=== PATIENT | male | born 1970 | race Two or more races ===

== ENCOUNTER 2024-12-21 00:13 | Inpatient (IN) | payer MEDICAID, SELFPAY ==
[2024-12-21] VITALS (8 sets, daily range): BP systolic 134–175; BP diastolic 57–86; PULSE 75–108; RESP 16–22; TEMP 36.6–37.3; O2SAT 91–100; BMI 41.6
--- NOTE | 2024-12-21 | ECG_ITS ---
Test Reason : CP Blood Pressure : */* mmHG Vent. Rate : 110 BPM Atrial Rate : 110 BPM P-R Int : 134 ms QRS Dur : 88 ms QT Int : 330 ms P-R-T Axes : 36 31 20 degrees QTcB Int : 446 ms Sinus tachycardia with Premature atrial complexes Nonspecific T wave abnormality Abnormal ECG No previous ECGs available Referred By: Generic ED Physician Electronically Signed By: SHEELA COONEY
--- NOTE | ~2024-12-21 | XR_ITS ---
CLINICAL HISTORY: chest pain 2 view chest x-ray Comparison: None Findings: Patchy bilateral pulmonary infiltrates. Heart size is normal. No acute fracture. IMPRESSION: Patchy bilateral pulmonary infiltrates. This document has been electronically signed by: Ilan Hillman MD, PHD on 12/21/2024 01:34:56
--- NOTE | 2024-12-21 00:27 | MHC.EDTECH ---
Patient brought into triage area,EKG taken per order and signed by provider.
--- NOTE | 2024-12-21 01:32 | ED.ASTHMA ---
HPI - Asthma General Chief Complaint: Upper Respiratory Symptoms Stated Complaint: sob? 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 Antonia Strauss HPI Narrative: patient comes to the emergency room complaining of 1 week of cough and shortness of breath and wheezing. Patient states that to his knowledge he has never been diagnosed with asthma or COPD. However, couple of days ago patient went to see his primary care physician, and he was prescribed an inhaler. Patient states that he has not had any improvements. Patient states that now he is having fever, chills shortness of breath keeps worsening Related Data Allergies Allergy/AdvReac Type Severity Reaction Status Date / Time No Known Allergies Allergy Verified 12/21/24 01:35 Review of Systems Review of Systems: Constitutional : No Fever, pos Chills ENT/Mouth : No Hoarseness, No sore throat, No Rhinorrhea Eyes: No Redness, No Discharge, No Vision Changes Cardiovascular : pos Chest Pain, positive SOB, positive Dyspnea on Exertion, No Edema Respiratory : positive Cough, pos Sputum, positive Wheezing, Gastrointestinal : No Nausea, No Vomiting, No Diarrhea, No abdominal Pain Genitourinary : No Dysuria, No Hematuria Musculoskeletal : No joint pain, No Myalgias Skin : No rash Neuro : No Weakness, No Numbness, No Headache Psych : No anxiety, depression All other systems reviewed and are negative PMF Past Medical History Attestation statement: The following information was validated with the patient. Source: old records reviewed Medical History Tobacco abuse Opiate abuse, continuous Obesity HTN (hypertension) Social History Social History (Updated 12/21/24 @ 01:39 by Amarilis Solorzano DO) Patient Tobacco Use Status: Current everyday Tobacco user Advance Directives: No Advance Directives Information Provided: Yes Physical Exam Vital Signs: Vital Signs: Last Vital Signs Temp 99.1 F 12/21/24 01:26 Pulse 108 H 12/21/24 02:33 Resp 20 12/21/24 02:33 BP 154/72 H 12/21/24 01:26 Pulse Ox 94 12/21/24 01:26 O2 Del Method Room Air 12/21/24 01:26 BMI result Body Mass Index 41.6 Appearance: Alert. Oriented X3. No acute distress. Eyes: Pupils equal, round and reactive to light. ENT: Pharynx normal. Neck: Normal inspection. Neck supple. CVS: Normal heart rate and rhythm. Pulses normal. Respiratory: No respiratory distress. Breath sounds diminished throughout and very coarse Abdomen: Soft and non-tender. Skin: Skin warm and dry. Normal skin color. Normal skin turgor. Extremities: No lower extremity edema. Neuro: Oriented X 3. No motor deficit. No sensory deficit. CN2-12 intact Const: Other: Appearance: Alert. Oriented X3. No acute distress. Eyes: Pupils equal, round and reactive to light. ENT: Pharynx normal. Neck: Normal inspection. Neck supple. No lymph nodes noted. No crepitus CVS: Normal heart rate and rhythm. Pulses normal. Normal S1 and S2 Respiratory: No respiratory distress. occasional dry cough, mild rales, no crackles, no wheezing Abdomen: Soft and nontender. No rigidity. No distention. Skin: Skin warm and dry. Normal skin color. Normal skin turgor. Extremities: No lower extremity edema. No Lacerations. No Rash Neuro: Oriented X 3. No motor deficit. No sensory deficit. Moving all extremities. No slurred speech. CN 2 through 12 grossly intact Psych: calm, cooperative, normal affect Course Course Course Narrative: 54 yo male with PMH of obesity, HTN, HLD, anemia, suboxone for opiate use disorder he was recently started on an asthma inhaler for wheezing/cough. Has a cough and feels his chest his tight. No recent travel or procedures. No known fevers/chills. No n/v/d. He is a lifelong smoker. This has been happening for 10 days. At this time basic, labs, CXR, viral panel this is a RAPID medical screening exam the rest of the history and physical exam is to be done by the main provider. Medications Administered Discontinued Medications Generic Name Dose Route Start Last Admin Trade Name Freq PRN Reason Stop Dose Admin Albuterol Sulfate 2.5 mg/ 0 mg 12/21/24 02:26 12/21/24 02:30 Albuterol/Ipratropium 3 ml INHALE 12/21/24 02:27 1 dose ONCE ONE Administration Medical Decision Making Medical Decision Making [facility] Narrative: my interpretation of labs: Patient's white blood cell count 9.4. Patient has a slightly decreased hemoglobin at 8.8, hematocrit 28.3. Patient denies any rectal bleeding, dark stool. Serology report negative for influenza RSV and COVID chest x-ray: Patchy bilateral pulmonary infiltrates patient has not had any episodes of hypotension in the emergency room, normal lactic, no fever. Sepsis is not suspected. Patient empirically being treated with IV fluids based on ideal weight of 55 kg, patient is obese. Patient covered with ceftriaxone and azithromycin IV. Ambulation trial : Patient's oxygen saturation dropped to 84% with minimal exertion. Patient has an oxygen saturation of 89% sitting in the stretcher without any exertion. No wheezing. However, patient became very short of breath after the small walk. Patient is now on 2 L oxygen. I discussed the patient with Dr. Faye, patient being admitted Differential Diagnosis Differential Diagnoses: The differential diagnosis associated with the presentation includes atypical chest pain, viral syndrome, reactive airway disease Admission/Observation Consideration of admission/observation: Escalation of care including admission/observation considered Lab Data MDM Lab Attestation statement: I reviewed the patient's lab results. 12/21/24 02:10 12/21/24 02:10 Labs: Lab Results 12/21/24 12/21/24 Range/Units 02:10 02:15 WBC 9.4 (4.8-10.8) X10*3/uL RBC 3.92 L (4.60-5.80) X10*6/uL Hgb 8.8 L (14.0-18.0) g/dl Hct 28.3 L (42.0-52.0) % MCV 72.2 L (80.0-98.0) fL MCH 22.4 L (27.0-33.0) pg MCHC 31.1 (31.0-36.0) g/dl RDW 17.4 H (11.0-16.0) % Plt Count 288 (160-400) X10*3/uL MPV 10.2 (9.4-12.4) fL Immature Gran % (Auto) 0.2 (0.0-0.4) % Neut % (Auto) 88.7 H (45-73) % Lymph % (Auto) 6.6 L (20-40) % Divide % (Auto) 4.4 (2-11) % Eos % (Auto) 0.0 (0-4) % Baso % (Auto) 0.1 (0-2) % Lymph # (Auto) 0.6 L (1.2-4.9) X10*3/uL Divide # (Auto) 0.4 (0.1-1.2) X10*3/uL Eos # (Auto) 0.0 (0.0-0.4) X10*3/uL Baso # (Auto) 0.0 (0.0-0.2) X10*3/uL Abs Immat Gran (auto) 0.02 (0.00-0.03) X10*3/uL Absolute Neuts (auto) 8.4 H (2.0-8.3) x10*3/uL Absolute Nucleated RBC 0.000 (0.0-0.012) X10*3/uL Nucleated RBC % (auto) 0.0 (0.0-0.2) /100WBC Sodium 138 (135-145) mmol/L Potassium 4.0 (3.3-5.1) mmol/L Chloride 106 (96-108) mmol/L Carbon Dioxide 22 (22-29) mmol/L Anion Gap 14 (12-20) BUN 9 (9-16) mg/dL Creatinine 0.87 (0.5-1.4) mg/dL Estim Creat Clear Calc 112.9 Estimated GFR > 60 Random Glucose 133 H (60-115) mg/dL Lactic Acid 0.9 (0.5-2.0) mmol/L Calcium 9.1 (8.4-10.2) mg/dL Magnesium 2.0 (1.6-2.6) mg/dL Total Bilirubin 0.6 (0.0-1.0) mg/dL Direct Bilirubin 0.3 (0.0-0.5) mg/dL AST 49 H (5-37) U/L ALT 10 (0-40) U/L Alkaline Phosphatase 94 (39-117) U/L Troponin I High Sens 16.5 (<3.5-35.0) ng/L C-Reactive Protein 29.09 H (< or = 0.50) mg/dL B-Natriuretic Peptide 82 (<100) pg/mL Total Protein 8.9 H (6.5-8.0) g/dL Albumin 4.0 (3.5-5.0) g/dL Lipase 13 (8-78) U/L Procalcitonin 0.56 ng/mL Influenza Type A (PCR) NEGATIVE (Negative) Influenza Type B (PCR) NEGATIVE (Negative) RSV RNA Qual (PCR) NEGATIVE (Negative) SARS-CoV-2 RNA (RT-PCR) NEGATIVE (Negative) Independent Interpretation I performed an independent interpretation of an: EKG and Plain X-Ray (bilateral pulm infiltrates) Interpretation: Rate: 110 Rhythm: sinus tachycardia Cameron: normal Normal P waves. Normal NICANOR. Normal QRS complex. ST T wave : no NATALIE, flat t waves inf leads, nonspecific ST T wave changes V6 qTC: 446 prior studies: no prior The study has been interpreted contemporaneously by me. . Independent Historian Clinical information obtained from an independent historian. History obtained from or confirmed by: Spouse External Record Review External record reviewed: Outpatient record Critical Care Time Critical Care Time Critical Care Time: Yes Total Critical Care Time: 60 Attestation: I have personally provided critical care time. Time includes review of lab data, radiology results, discussion with consultants, and monitoring for potential decompensation. Intervention performed as documented. Discharge Plan Discharge Clinical Impression: Pneumonia Patient Disposition: Admitted As Inpatient Print Language: Sinhala
[2024-12-21 02:22] LABS: Basophils Percent Auto 0.1 % (0-2); Hematocrit 28.3 % (42.0-52.0); Hemoglobin 8.8 g/dl (14.0-18.0); Imm Gran Abs Auto 0.02 X10*3/uL (0.00-0.03); Imm Gran Pct Auto 0.2 % (0.0-0.4); Lymphocytes Absolute Auto 0.6 X10*3/uL (1.2-4.9); Lymphocytes Percent Auto 6.6 % (20-40); MANUAL DIFF FLAG NO; Mean Corpuscular HGB Conc 31.1 g/dl (31.0-36.0); Mean Corpuscular Hemoglobin 22.4 pg (27.0-33.0); Mean Corpuscular Volume 72.2 fL (80.0-98.0); Mean Platelet Volume 10.2 fL (9.4-12.4); Monocytes Absolute Auto 0.4 X10*3/uL (0.1-1.2); Monocytes Percent Auto 4.4 % (2-11); Neutrophils Absolute Auto 8.4 x10*3/uL (2.0-8.3); Neutrophils Percent Auto 88.7 % (45-73); Platelet Count 288 X10*3/uL (160-400); Red Blood Count 3.92 X10*6/uL (4.60-5.80); Red Cell Distribution Width 17.4 % (11.0-16.0); White Blood Count 9.4 X10*3/uL (4.8-10.8)
[2024-12-21] MEDS: Albuterol Sulfate 2.5 MG, Albuterol/Iprat 2.5/0.5MG 3 ML 3 ML INHALE (02:30)
[2024-12-21 02:42] LABS: Lactic Acid 0.9 mmol/L (0.5-2.0)
[2024-12-21 02:45] LABS: Alanine Aminotransferase 10 U/L (0-40); Anion Gap 14 (12-20); Aspartate Amino Transferase 49 U/L (5-37); Bilirubin Direct 0.3 mg/dL (0.0-0.5); Bilirubin Total 0.6 mg/dL (0.0-1.0); Blood Urea Nitrogen 9 mg/dL (9-16); C Reactive Protein 29.09 mg/dL (< or = 0.50); Calcium 9.1 mg/dL (8.4-10.2); Carbon Dioxide 22 mmol/L (22-29); Chloride 106 mmol/L (96-108); Creatinine Clr Calc Pharmacy 112.9; Estimated Glomerular Filt Rate > 60; Glucose Random 133 mg/dL (60-115); Lipase 13 U/L (8-78); Sodium 138 mmol/L (135-145); Total Protein 8.9 g/dL (6.5-8.0)
[2024-12-21 02:46] LABS: Troponin-I High Sensitivity 16.5 ng/L (<3.5-35.0)
[2024-12-21 02:59] LABS: Influenza A PCR NEGATIVE (Negative); Influenza B PCR NEGATIVE (Negative); Resp Syncy Virus RNA Qual PCR NEGATIVE (Negative); SARS COV2 PCR INHOUSE NEGATIVE (Negative)
[2024-12-21 03:07] LABS: B Type Natriuretic Peptide 82 pg/mL (<100)
[2024-12-21 04:03] LABS: Alkaline Phosphatase 94 U/L (39-117)
--- NOTE | 2024-12-21 04:15 | MHC.EDTECH ---
pt refused blood work
[2024-12-21 04:57] LABS: Procalcitonin 0.56 ng/mL
--- OUTSIDE RECORDS SUMMARY | 2024-12-21 05:46 | XMS_ITS | Encounter Summary ---
Author Organization [facility] Address [address] [place] [address] Care Team Providers Care Associate Program Manager Name Role Phone Jesi Carmichael TITO Primary Care Provider [phone] Encounter Details Date Type Department Care Team (Late st Contact Info) Description 12/11/2024 Interim Notes [facility] [address] [place] [id number] Chad Sanchez PA [address] [place] [address] Opioid use disorder, mild, in sustained remission, on maintenance therapy, abuse ([facility]) Social History Tobacco Use Types Packs/Day Years Used Date Smoking Tobacco: Every Day Cigarettes Smokeless Tobacco: Never Comments:about 7 a day Alcohol Use Standard Drinks/Week Comments Not Currently 0 (1 standard drink = 0.6 oz pur e alcohol) Social Connections Answer Date Recorded Connectedness 1 10/21/2024 Financial Resource Strain Answer Date R ecorded Financial Resource Strain 2 2023 Stress Answer Date Recorded Stress 1 10/21/2024 Physical Activity Answer Date Recorded Physical Activity 0 10/13/2020 Food Insecurity Answer Date Recorded Food 1 10/21/2024 Transportation Needs Answer Date Record ed Transportation 1 10/21/2024 Housing Stability Answer Date Recorded Housing 1 10/21/2024 Safety and Environment Answer Date Brandon rded Safety 0 10/13/2020 Utilities Answer Date Recorded Utilities 1 10/21/2024 Employment Answer Date Recorded Stress 0 03/20/2023 Sex and Gender Information Value Date Recorded Sex Assigned at Male 05/30/2019 7:47 AM PDT Legal Sex Male 7:05 AM PDT Gender Identity Male 05/30/2019 7:47 AM PDT Sexual Orientation Straight 05/30/2019 7: 47 AM PDT documented as of this encounter Plan of Treatment Upcoming Encounters Date Type Department Care Team (Late st Contact Info) Description 01/14/2025 1:00 PM EDT / Visits [facility] [address] [place] [phone] Karina Rogers [place] [address] [place] [address] documented as of this encounter Visit Diagnoses Diagnosis Opioid use disorder, mild, in sustained remission, on maintenance therapy, abuse ([facility]) documented in this encounter Additional Health Concerns Assessment Noted Time PHQ-9 Depression Total Score: 8 12/07/19 24 4:36 PM PST documented as of this encounter Care Teams Associate Program Manager Relationship Specialty Start Date End Date Jesi Carmichael FNP [address] [place] [address] PCP - General Internal Medicine 09/29/22 documented as of this encounter
--- OUTSIDE RECORDS SUMMARY | 2024-12-21 05:46 | XMS_ITS | Encounter Summary ---
Author Organization [facility] Address [address] [place] [address] Care Team Providers Care Automatic Lump Making Machine Tender Name Role Phone Jesi Carmichael TITO Primary Care Provider [phone] Reason for Visit * Reason Comments Individual Counseling Encounter Details Date Type Department Care Team ([facility] st Contact Info) Description 11/24/2024 2:00 PM EST / Visits [facility] [address] [place] [phone] Ambika Crowell LCSW [address] [place] [address] Opioid use disorder, mild, in sustained remission, on maintenance therapy, abuse (HCC-CMS) (Primary Dx); Cocaine use disorder (HCC-CMS); Anxiety; Moderate episode of recurrent major depressive disorder (HCC-CMS); Insomnia, unspecified type; Opioid use disorder, severe, dependence (HCC-CMS); Anxiety and depression; Uncomplicated opioid dependence (HCC-CMS); Encounter for long-term opiate analgesic use Social History Tobacco Use Types Packs/Day Years [...] Orientation Straight 05/30/2019 7: 47 AM PDT COVID-19 Exposure Response Date Recorded In the last 10 days, have yo u been in contact with someone who was confirmed or suspected to have Coronavirus/COVID-19? No / Unsure 10/30/2024 1:30 PM EST documented as of this encounter Progress Notes * Ambika Crowell LCSW - 11/25/2024 12:18 PM EST The following visit was conducted via Audio only. I educated the patient/guardian on the terms of telehealth and the patient verbally consented to this telemedicine visit. The patient was identified using their Name, and [facility] ID. I identified myself as Ambika Perrin LCSW from [facility]. It was conducted in a private space to protect HIPPA sensitive information. Precautions were taken to provide confidentiality and security and patient was made aware of privacy considerations. The patients location was obtained and is [facility] The patient/guardian was notified that the services were being provided from [facility] Location. The patient/guardian was notified how they can see a clinician in-person in the event of an emergency or if otherwise needed. Visit START TIME: 2:00 END TIME 2:45 pm [place] Supervisor used during visit? no [facility] NW FORM - UNSHARED NOTE: Exception: Privacy Privacy Justification: Denial of individual???s request for their EHI consistent with 45 CFR 164.524(a)(1) and (2). Subclassification (required for 'Denial'): Psychotherapy notes TOTAL TIME IN SESSION: 45 minutes START/ END TIME: 2:00 pm to 2:45 pm RISK ASSESSMENT: PERSON DENIES SI/HI OTHER PEOPLE PRESENT IN SESSION: OTHER Assessed Needs/Goals/Objectives/Services Status Priority Assessed Needs 1: AODA Active 1 - High Status Target Date Goal 1.1: Accept the fact of chemical dependence and begin to actively participate in a recovery program. Active 06/03/2021 Status Target Date Objective 1.1.1: Describe the type, amount, frequency, and history of substance Active 06/04/2020 Services Duration Amount Frequency Provider Provider Individual Therapy 01 - Hours 1x Weekly 07=TORRI JOHNSON LCSW, Psychologist [place] Assessed Needs 2: Mental Health Active 1 - High Status Target Date Goal 2.1: Reduce overall frequency, intensity, and duration of the anxiety so that daily functioning is not impaired Active 06/03/2021 Status Target Date Objective 2.1.1: Describe current and past experiences with the worry and anxiety symptoms Active 06/04/2020 Services Duration Amount Frequency Provider Provider Indiv Counseling 01 - Hours 1x Weekly 07=TORRI JOHNSON LCSW, Psychologist [place]ACE Service Plan AODA Accept the fact of chemical dependence and begin to actively participate in a recovery program. Describe the type, amount, frequency, and history of substance Mental Health Reduce overall frequency, intensity, and duration of the anxiety so that daily functioning is not impaired Describe current and past experiences with the worry and anxiety symptoms PROGRESS SINCE LAST SESSION TOWARD GOALS/OBJECTIVES: We saw the client in person at the clinic after being seen on the MAT program. He looks stable eventhough he has some trouble walking like a limp. He apologized for not answering the last telehealthsession because he said he was having trouble with his phone and he hopes to get another one today.He also had an appointment with one of the CWs from the other department. We asked about his mentalstatus and functioning and he said he was fine following up and trying to continue. He especially asked for help communicating to his primary provider the fact that he needs help from a INSURANCE AGENCY MANAGER. According to him, he has not been approved because his primary needs to send a new request or referral. We agreed to try to send a message to his provider and after checking that the client is stable we gave him a next appointment. PD: The patient expressed his needs of a INSURANCE AGENCY MANAGER services due to his physical condition and a falling things out of his hands and history of Chronic pain of right knee. INSURANCE AGENCY MANAGER. According to him and his partner he received a letter from [employer] mentioning that he needs toapply to another agency of services. translation and guidance on what you have to do to be evaluated and receive the services and according to determine the hours that would be assigned. PD: Client continues experiencing numbness in his hands and reports dropping things from his hands he is also has extreme pain. 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 In terms of his care and chores around his apartment he said he is unable to do things and understands that he needs a INSURANCE AGENCY MANAGER to assist him and he need a referral to be initiated by his primary care provider. PD: Client forced to stay in bed almost all the time and things falling out of his hands that are disfigured . He said that need help to do certain things and needs the assigning of a INSURANCE AGENCY MANAGER. He leave his job and face problems with arthritis, he continue with the MAT program once a month. PD: We reinforced staying calm, free from being on the streets and doing well. Despite being a little worried about his health, especially because of his high blood pressure and NEW CONCERNS TODAY: NONE MOOD: ANXIOUS AFFECT: FULL RANGE AND CONGRUENT WITH MOOD SPEECH: PRESSURED BEHAVIOR: COOPERATIVE EYE CONTACT: MINIMAL THOUGHT PROCESSES: WNL ORIENTATION: WNL MEDICAL CONCERNS: NOTHING NEW COMMENT: SUBSTANCE USE: IN MAT PROGRAM On Suboxone INTERVENTIONS: Clinician used validation, empathetic and attentive approach while gathering information during the intervention. Validated client???s feelings around this. Discussed positive self-talk and self-care. Client was engaging and will discussed feelings, symptoms and frustration. We are able to send a message about client's needs. PERSON'S RESPONSE TO INTERVENTIONS: COOPERATIVE Client was able to express feelings and identified personal and current stressors. PLAN FOR NEXT SESSION: We planning to continue following client's behaviors, symptoms that may interfere with recovery reaching client???s personal goals and objectives for therapy. Cont. emotion regulation and interpersonal effectiveness skills to reduce impact of symptoms at the present life. We agreed to maintain telehealth phone calls or face to face sessions at the clinic. DATE OF NEXT SESSION: CLIENT WILL: USE SKILLS TAUGHT IN SESSION documented in this encounter Plan of Treatment Upcoming Encounters Date Type Department Care Team (Late st Contact Info) Description 01/14/2025 1:00 PM EDT / Visits [facility] [address] [place] [address] Karina Rogers MD [address] [place] [address] documented as of this encounter Visit Diagnoses Diagnosis Opioid use disorder, mild, in sustained remission, on maintenance therapy, abuse ([facility])- Primary Cocaine use disorder ([facility]) Anxiety Anxiety state, unspecified Moderate episode of recurrent major depressive disorder ([facility]) Insomnia, unspecified type Opioid use disorder, severe, dependence ([facility]) Anxiety and depression Dysthymic disorder Uncomplicated opioid dependence ([facility]) Opioid type dependence, unspecified Encounter for long-term opiate analgesic use Encounter for long-term (current) use of other medications documented in this encounter Additional Health Concerns Assessment Noted Time PHQ-9 Depression Total Score: 8 12/07/19 24 4:36 PM PST documented as of this encounter Care Teams Automatic Lump Making Machine Tender Relationship Specialty Start Date End Date Jesi Carmichael FNP [facility] [place] [address] PCP - General Internal Medicine 09/29/22 documented as of this encounter
--- OUTSIDE RECORDS SUMMARY | 2024-12-21 05:46 | XMS_ITS | Clinical Summary ---
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 Name Role Phone Jesi Carmichael TITO Primary Care Provider [phone] Source Comments PLEASE NOTE, if this patient is a minor, it may be UNLAWFUL to discuss sensitive information that is contained in these records (such as FAMILY PLANNING, MENTAL HEALTH or SUBSTANCE ABUSE) with the minor patient's parent or other person without the patient's specific authorization.[facility] Allergies No known active allergies Medications sofosbuvir-velpata svir (EPCLUSA) 400-100 mg tab Take 1 Tab by mouth once daily 84 Tab 10/06/20 19 Active naloxone (NARCAN) 4 mg/actuation nasal sprayIndications:O pioid use disorder, mild, in sustained remission, on maintenance therapy, abuse ([facility]) Place 1 [place] into the nostril(s) as needed for opioid reversal Take as directed 1 Each 1 06/12/20 23 Active ondansetron ODT (ZOFRAN-ODT) 4 mg disintegrating tabletIndications: Nausea and vomiting, unspecified vomiting type Take 1 Tablet by mouth every 8 (eight) hours as needed for nausea 30 Tablet 1 11/27/19 24 Active losartan (COZAAR) 25 mg tabletIndications: Essential hypertension Take 1 Tablet by mouth once daily For BP 90 Tablet 4 12/07/19 24 Active varenicline (CHANTIX) 0.5 mg tabletIndications: Cigarette nicotine dependence without complication Take one tab daily days 1-3, then 1 tab BID days 4-7 11 Tablet 12/07/19 24 Active varenicline (CHANTIX) 1 mg tabletIndications: Cigarette nicotine dependence without complication Take 1 Tablet by mouth 2 (two) times daily 60 Tablet 1 12/07/19 24 Active docusate sodium (COLACE) 100 mg capsuleIndications :Slow transit constipation Take 1 Capsule by mouth daily. 90 Capsule 1 12/07/19 24 Active diclofenac sodium (SOLARAZE) 3 % gelIndications:Chr onic pain of right knee,Pain in multiple finger joints Apply topically 2 (two) times daily For hand and knee pain 50 g 2 04/04/20 24 Active gabapentin (NEURONTIN) 800 mg tabletIndications: Neuropathy Take 1 Tablet by mouth 3 (three) times daily 90 Tablet 4 09/22/20 24 Active famotidine (PEPCID) 40 mg tabletIndications: Chronic pain of right knee,Chronic GERD [place] 1 tableta por via oral cada maqana antes desayuno Indicaciones: acidez 90 Tablet 1 09/29/20 24 Active SUBOXONE 8-2 mg SL filmIndications:Op ioid use disorder, mild, in sustained remission, on maintenance therapy, abuse ([facility]) Place 1 Strip under the tongue 3 (three) times daily for 28 days 84 Each 10/27/20 24 Active celecoxib (CELEBREX) 400 mg capsuleIndications :Chronic pain of right knee,Pain in multiple finger joints,Neuropathy Take 1 Capsule by mouth 2 (two) times daily 180 Capsule 1 10/28/20 24 Active ferrous sulfate 325 mg (65 mg iron) EC tabletIndications: Iron deficiency anemia secondary to inadequate dietary iron intake Take 1 Tablet by mouth 2 (two) times daily 180 Tablet 1 12/03/19 25 Active hydrOXYzine HCL (ATARAX) 25 mg tabletIndications: Anxiety and depression Take 1 Tablet by mouth 3 (three) times daily as needed for anxiety 30 Tablet 2 12/03/19 25 Active buprenorphine-nalo xone (SUBOXONE FILM) 8-2 mg SL filmIndications:Op ioid use disorder, mild, in sustained remission, on maintenance therapy, abuse ([facility]) Place 1 Strip under the tongue 3 (three) times daily for 28 days 84 Each 12/11/19 25 025 Active albuterol HFA 90 mcg/actuation inhaler Inhale 2 Puffs into the lungs every 4 (four) hours as needed for shortness of breath 18 g 3 12/18/19 25 Active buprenorphine-nalo xone (SUBOXONE FILM) 8-2 mg SL filmIndications:Op ioid use disorder, mild, in sustained remission, on maintenance therapy, abuse ([facility]) Place 1 Strip under the tongue 3 (three) times daily for 28 days 84 Each 10/28/20 24 025 Discontin ued(Reord er (E-Cancel Not Sent)) hydrOXYzine HCL (ATARAX) 25 mg tabletIndications: Anxiety and depression Take 1 Tablet by mouth 3 (three) times daily as needed for anxiety 30 Tablet 10/28/20 24 025 Discontin ued(Reord er (E-Cancel Not Sent)) ferrous sulfate 325 mg (65 mg iron) EC tabletIndications: Iron deficiency anemia secondary to inadequate dietary iron intake Take 1 Tablet by mouth 2 (two) times daily 180 Tablet 1 10/28/20 24 025 Discontin ued(Reord er (E-Cancel Not Sent)) Active Problems Problem Noted Date Diagnosed Date Financial difficulties 10/21/2024 Acquired clawhand 07/08/2024 Chronic GERD 01/23/2022 Opioid use disorder, moderat e, in sustained remission ([facility]) 07/22/2020 Moderate episode of recurren t major depressive disorder ([facility]) 07/22/2020 Hepatitis B immune 08/24/2019 Hepatitis A immune 08/24/2019 Positive serological reaction for syphilis 08/24 Overview (08/24/2019): 07-10-19 FTA Abs + RPR Neg 07-16-19 T Pallidum Passive agglut + reactive 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 Genotype 1a Hep C viral load = 345, 867 on 06-16 Cocaine abuse ([facility]) 05/30/2019 Depressive disorder 05/30/2019 Overview (12/07/2023): As per [facility] medical records Essential hypertension 05/30/2019 Bone development abnormal Overview (07/02/2019): Right knee Osteoarthritis Overview (07/02/2019): Knee and bilateral hands Encounters Date Type Department Care Team Description 12/18/2024 3:20 PM EST Office Visit [address] [phone] Chrissy Ariza, TITO Pineda, Iris Claudication ([facility] (Primary Dx); Multiple joint pain; Essential hypertension 12/11/2024 Interim Notes [facility] [address] [place] [phone] Chad Sanchez PA Opioid use disorder, mild, in sustained remission, on maintenance therapy, abuse ([facility]) 11/24/2024 2:00 PM EST / Visits [address] [phone] Ambika Crowell LCSW Opioid use disorder, mild, in sustained remission, on maintenance therapy, abuse ([facility]) (Primary Dx); Cocaine use disorder ([facility]); Anxiety; Moderate episode of recurrent major depressive disorder ([facility]); Insomnia, unspecified type; Opioid use disorder, severe, dependence ([facility]); Anxiety and depression; Uncomplicated opioid dependence ([facility]); Encounter for long-term opiate analgesic use 10/30/2024 Travel 10/21/2024 1:00 PM EST Office Visit [address] [phone] Cary Jesus Financial difficulties (Primary Dx) 10/21/2024 Travel 09/30/2024 3:45 PM EST / Visits [address] [phone] Ambika Crowell LCSW Opioid use disorder, mild, in sustained remission, on maintenance therapy, abuse ([facility]) (Primary Dx); Cocaine use disorder ([facility]); Anxiety; Moderate episode of recurrent major depressive disorder ([facility]); Insomnia, unspecified type; Opioid use disorder, severe, dependence ([facility]); Anxiety and depression; Uncomplicated opioid dependence ([facility]); Encounter for long-term opiate analgesic use 09/30/2024 Travel 09/22/2024 3:15 PM EST / Visits [address] [phone] Ambika Crowell LCSW Opioid use disorder, mild, in sustained remission, on maintenance therapy, abuse ([facility]) (Primary Dx); Cocaine use disorder ([facility]); Anxiety; Moderate episode of recurrent major depressive disorder ([facility]); Insomnia, unspecified type; Opioid use disorder, severe, dependence ([facility]); Anxiety and depression; Uncomplicated opioid dependence ([facility]); Encounter for long-term opiate analgesic use 09/22/2024 Travel from Last 3 Months Immunizations Name Administration Dates Next Due Flu, Preservative Free 09/05/2022 INFLUENZA, SEASONAL, INJECTABLE 08/16/2018,11/16 TUCKER COVID-19 VACCINE 03/29/2021 Pfizer COVID vaccine, JOYCEIRANN, sanchez cap, 12+ 0 11/14/2021 Pfizer-[employer] COVID-19 Vac cine Bivalent, (SANCHEZ PFIZER-BIONTECH COVID-19 VACCINE BIVALENT, (SANCHEZ CAP 03/23/2023 TDAP 04/14/2015 ZOSTER VACCINE, RECOMBINANT (SHINGRIX) 3,09/05/2022 Family History Medical History Relation Name Comments Arthritis Brother 1 Arthritis Brother 2 Arthritis Brother 3 Arthritis Brother 4 Arthritis Father Arthritis Sister 1 Arthritis Sister 2 Arthritis Sister 3 Arthritis Sister 4 Relation Name Status Comments Brother 1 Alive Brother 2 Alive Brother 3 Alive Brother 4 Alive Father Alive Mother (Age 67) cause of d eath - heart attack Sister 1 Alive Sister 2 Alive Sister 3 Alive Sister 4 Alive Social History Tobacco Use Types Packs/Day Years Used Date Smoking Tobacco: Every Day Cigarettes Smokeless Tobacco: Never Tobacco Cessation:Ready to Q uit: Not Asked; Counseling Given: Yes Comments:about 7 a day Alcohol Use Standard [...] Orientation Straight 05/30/2019 7: 47 AM PDT Last Filed Vital Signs Vital Sign Reading Time Taken Comments Blood Pressure 134/72 12/18/2024 2:36 PM EST Pulse 93 12/18/2024 2:36 PM EST Temperature 37.4 ??C (99.3 ??F) 12/18/2024 2:36 PM ES T Respiratory Rate 16 12/18/2024 2:36 PM EST Oxygen Saturation 95% 12/18/2024 2:36 PM EST Inhaled Oxygen Concentration - - Weight 111.6 kg (246 lb) 12/18/2024 2:36 PM EST Height 170.2 cm (5' 7 ) 12/18/2024 2:36 PM EST Body Mass Index 38.53 12/18/2024 2:36 PM EST Plan of Treatment Upcoming Encounters Date Type Department Care Team (Late st Contact Info) Description 01/14/2025 1:00 PM EDT / Visits [address] [phone] Karina Rogers [address] [address] Health Maintenance Due Date Last Done Comments Dental Prophy 1970 Imm-Pneumococcal (1 of 2 - PCV) 1989 CT Colonography 2015 Colonoscopy 2015 Flexible Sigmoidoscopy 2015 Depression Monitoring 03/06/2024 12/07/2023 , 07/24/2023, 03/23/2023, Additional history exists [id number] ( season) 2024 03/23/2023, 11/14/2021, 03/29/2021 Imm-Influenza (#1) 2024 09/05/2022, 1 , 11/16/2016 Syphilis Screening 07/10/2024 07/10/2023, 0 03/23/2023, 07/11/2019, Additional history exists Alcohol and Drug Screen 10/29/2024 12/07/19 24, 03/23/2023, 01/17/2022, Additional history exists Tobacco Cessation Counseling (#1) 12/06/2024 024, 09/05/2022 FIT/gFOBT 03/20/2025 03/20/2024 Imm-DTaP/Tdap/Td (2 - Td or Tdap) 04/14/2025 015 Dental Examination 06/06/2025 06/04/2024, 09/05/2022 Dental Perio Charting 06/06/2025 06/04/2024 Diabetes Screening 12/18/2025 12/18/2024, 0 12/18/2024, 04/16/2024, Additional history exists Colorectal Cancer Screening 03/20/2027 Fecal DNA 03/20/2027 03/20/2024 Dental FMX/Pano 09/07/2027 09/05/2022 Lipid Screening 12/18/2027 12/18/2024, 11/30, 07/10/2023, Additional history exists Imm-Zoster, Recombinant Completed 03/23/2023, 09/05 HIV Screening Completed 04/16/2024, 12/28, 03/21/2021, Additional history exists Imm-Hepatitis A Discontinued Imm-Hepatitis B Discontinued Procedures Procedure Name Priority Date/Time Associated Diagnosis Comments COMPREHENSIVE METABOLIC PANEL Routine 12/18/2024 3:15 PM EST Essential hypertension HEMOGLOBIN GLYCOSYLATED A1C Routine 12/18/2024 3:15 PM EST Essential hypertension IRON, TIBC, FERRITIN PANEL Routine 12/18/2024 3:15 PM EST Essential hypertension BLOOD COUNT COMPLETE AUTO&AUTO DIFRNTL WBC Routine 12/18/2024 3:15 PM EST Essential hypertension LIPIDS W RFLX TO DIRECT LDL Routine 12/18/2024 3:15 PM EST Essential hypertension DRUG MONITORING TEMPLATE Routine 12/10/2024 3:58 PM EST DRUG MONITORING TEMPLATE Routine 12/10/2024 3:58 PM EST DRUG MONITORING, PANEL 8 WITH CONFIRMATION, URINE Routine 12/10/2024 3:58 PM EST Uncomplicated opioid dependence ([facility]) DRUG MONITORING, FENTANYL, WITH CONFIRMATION, URINE Routine 12/10/2024 3:58 PM EST Uncomplicated opioid dependence ([facility]) DRUG MONITORING, BARBITURATES, WITH CONFIRMATION, URINE Routine 12/10/2024 3:58 PM EST Uncomplicated opioid dependence ([facility]) DRUG MONITORING TEMPLATE Routine 10/27/2024 3:16 PM EST DRUG MONITORING TEMPLATE Routine 10/27/2024 3:16 PM EST DRUG MONITORING, PANEL 8 WITH CONFIRMATION, URINE Routine 10/27/2024 3:16 PM EST Uncomplicated opioid dependence ([facility]) DRUG MONITORING, FENTANYL, WITH CONFIRMATION, URINE Routine 10/27/2024 3:16 PM EST Uncomplicated opioid dependence ([facility]) DRUG MONITORING, BARBITURATES, WITH CONFIRMATION, URINE Routine 10/27/2024 3:16 PM EST Uncomplicated opioid dependence ([facility]) DRUG MONITORING TEMPLATE Routine 10/01/2024 9:46 AM EST DRUG MONITORING TEMPLATE Routine 10/01/2024 9:46 AM EST DRUG MONITORING, PANEL 8 WITH CONFIRMATION, URINE Routine 10/01/2024 9:46 AM EST Uncomplicated opioid dependence ([facility]) DRUG MONITORING, FENTANYL, WITH CONFIRMATION, URINE Routine 10/01/2024 9:46 AM EST Uncomplicated opioid dependence ([facility]) DRUG MONITORING, BARBITURATES, WITH CONFIRMATION, URINE Routine 10/01/2024 9:46 AM EST Uncomplicated opioid dependence ([facility]) Full COMP ORAL EVALUATION - NEW/ESTABLISHED PATIENT Routine 06/04/2024 4:00 PM EDT Retained tooth root Caries HIV 1/2 AG & AB W/RFLX (4TH GEN) Routine 04/16/2024 1:26 PM EDT Opioid use disorder, severe, dependence ([facility]) COLOGUARD Routine 03/20/2024 3:00 AM EDT Colon cancer screening RPR W/RFLX TITER+FTA+CONF Routine 07/10/2023 11:20 AM EDT Uncomplicated opioid dependence ([facility]) PANORAMIC RADIOGRAPHIC IMAGE Routine 09/05/2022 3:00 PM EST Pain, dental from Last 3 Months or Most Recently Relevant to Health Maintenance Results * (ABNORMAL) IRON, TIBC, FERRITIN PANEL (12/18/2024 3:15 PM EST) FERRITIN 19(L) 38 - 380 ng/mL [facility] IRON, TOTAL 23(L) 50 - 180 mcg/dL [facility] IRON BINDING CAPACITY 429(H) 250 - 425 mcg/dL (calc) [facility] % SATURATION 5(L) 20 - 48 % (calc) [facility] Blood Blood / Unknown 12/18/2024 3 :15 PM EST 12/18/2024 3:15 PM EST Narrative [facility] - 12/19/2024 9:51 AM EST FASTING:NO Chrissy Calabresey [facility] - BLOOD DRAW Final Result Performing Organization Address [facility]/ZIP Co de Phone Number [facility] [address] [address], [facility] [address] [address] * (ABNORMAL) LIPIDS W RFLX TO DIRECT LDL (12/18/2024 3:15 PM EST) [facility] Signature CHOLESTEROL, TOTAL 98 <200 mg/dL [facility] HDL CHOLESTEROL 30(L) > OR = 40 mg/dL [facility] TRIGLYCERIDES 110 <150 mg/dL [facility] LDL-CHOLESTEROL 48 99 mg/dL (calc) [facility] Comment: Reference range: <100 Desirable range <100 mg/dL for primary prevention; ?? <70 mg/dL for patients with CHD or diabetic patients with > or = 2 CHD risk factors. LDL-C is now calculated using the Lisa calculation, which is a validated novel method providing better accuracy than the Friedewald equation in the estimation of LDL-C. Mino FLORENTINO et al. FREDI. 2013;310(19): 0989-5841 (http://education.StudyBlue/faq/PNC853) CHOL/HDLC RATIO 3.3 <5.0 (calc) [facility] NON-HDL CHOLESTEROL 68 <130 mg/dL (calc) [facility] Comment: For patients with diabetes plus 1 major ASCVD risk factor, treating to a non-HDL-C goal of <100 mg/dL (LDL-C of <70 mg/dL) is considered a therapeutic option. Blood Blood / Unknown 12/18/2024 3 :15 PM EST 12/18/2024 3:15 PM EST Narrative [facility] - 12/19/2024 9:51 AM EST FASTING:NO Chrissy Dyerleonid [facility] - BLOOD DRAW Final Result [facility] [address] [address], [facility] [address] [address] * (ABNORMAL) BLOOD COUNT COMPLETE AUTO&AUTO DIFRNTL WBC (12/18/2024 3:15 PM EST) [facility] WHITE BLOOD CELL COUNT 8.7 3.8 - 10.8 Thousand/ uL [facility] RED BLOOD CELL COUNT 4.24 4.20 - 5.80 Million/u L [facility] HEMOGLOBIN 9.7(L) 13.2 - 17.1 g/dL [facility] HEMATOCRIT 32.9(L) 38.5 - 50.0 % [facility] MCV 77.6(L) 80.0 - 100.0 fL [facility] MCH 22.9(L) 27.0 - 33.0 pg [facility] MCHC 29.5(L) 32.0 - 36.0 g/dL [facility] Comment: For adults, a slight decrease in the calculated MCHC value (in the range of 30 to 32 g/dL) is most likely not clinically significant; however, it should be interpreted with caution in correlation with other red cell parameters and the patient's clinical condition. RDW 16.3(H) 11.0 - 15.0 % [facility] PLATELET COUNT 289 140 - 400 Thousand/ uL [facility] MPV 12.2 7.5 - 12.5 fL [facility] ABSOLUTE NEUTROPHILS 6,995 1,500 - 7,800 cells/uL [facility] ABSOLUTE LYMPHOCYTES 1,131 850 - 3,900 cells/uL [facility] ABSOLUTE MONOCYTES 479 200 - 950 cells/uL [facility] ABSOLUTE EOSINOPHILS 78 15 - 500 cells/uL [facility] ABSOLUTE BASOPHILS 17 0 - 200 cells/uL [facility] NEUTROPHILS PCT 80.4 % QUES T [employer] [facility] LYMPHOCYTES 13.0 % [facility] MONOCYTES 5.5 % [facility] [employer] EOSINOPHILS 0.9 % [facility] [employer] BASOPHILS 0.2 % [facility] [employer] Blood Blood / Unknown 12/18/2024 3 :15 PM EST 12/18/2024 3:15 PM EST Narrative [facility] - 12/19/2024 9:51 AM EST FASTING:NO Chrissy [facility] LAB - BLOOD DRAW Edited Resul t - Final [facility] [address] [address], [facility] [address] [address] * (ABNORMAL) HEMOGLOBIN GLYCOSYLATED A1C (12/18/2024 3:15 PM EST) HEMOGLOBIN A1C 5.9(H) <5.7 % of total Hgb [facility] Comment: For someone without known diabetes, a hemoglobin A1c value between 5.7% and 6.4% is consistent with prediabetes and should be confirmed with a follow-up test. For someone with known diabetes, a value <7% indicates that their diabetes is well controlled. A1c targets should be individualized based on duration of diabetes, age, comorbid conditions, and other considerations. This assay result is consistent with an increased risk of diabetes. Currently, no consensus exists regarding use of hemoglobin A1c for diagnosis of diabetes for children. Blood Blood / Unknown 12/18/2024 3 :15 PM EST 12/18/2024 3:15 PM EST Narrative [facility] - 12/19/2024 9:51 AM EST FASTING:NO Chrissy ROCKP LAB - BLOOD DRAW Edited Resul t - Final Performing Organization Address [facility] Co de Phone Number [facility] [address] [address], [facility] [address] [phone] * COMPREHENSIVE METABOLIC PANEL (12/18/2024 3:15 PM EST) GLUCOSE 108 65 - 139 mg/dL [facility] Comment: ?Non-fasting reference interval UREA NITROGEN (BUN) 12 7 - 25 mg/dL [facility] CREATININE (blood) 0.93 0.70 - 1.30 mg/dL [facility] EGFR 98 > OR = 60 mL/min/1. 73m2 [facility] BUN/CREATININE RATIO SEE NOTE: [facility] Comment: ?? Not Reported: BUN and Creatinine are within ?? reference range. ? SODIUM 138 135 - 146 mmol/L [facility] POTASSIUM 4.3 3.5 - 5.3 mmol/L [facility] CHLORIDE 103 98 - 110 mmol/L [facility] CARBON DIOXIDE 27 20 - 32 mmol/L [facility] CALCIUM 9.3 8.6 - 10.3 mg/dL [facility] PROTEIN, TOTAL 7.9 6.1 - 8.1 g/dL [facility] ALBUMIN 4.5 3.6 - 5.1 g/dL [facility] GLOBULIN 3.4 1.9 - 3.7 g/dL (calc) [facility] ALBUMIN/GLOBULI N RATIO 1.3 1.0 - 2.5 (calc) [facility] BILIRUBIN, TOTAL 0.4 0.2 - 1.2 mg/dL [facility] ALKALINE PHOSPHATASE 88 35 - 144 U/L [facility] AST 20 10 - 35 U/L [facility] ALT 10 9 - 46 U/L [facility] Blood Blood / Unknown 12/18/2024 3 :15 PM EST 12/18/2024 3:15 PM EST Narrative [facility] - 12/19/2024 9:51 AM EST FASTING:NO Chrissy ROCKP LAB - BLOOD DRAW Final Result [facility] [address] [address], [facility] [address] [address] * (ABNORMAL) DRUG MONITORING, PANEL 8 WITH CONFIRMATION, URINE (12/10/2024 3:58 PM EST) Only the most recent of3 resultswithin the time period is included. ALCOHOL METABOLITES NEGATIVE <500 [facility] AMPHETAMINES NEGATIVE <500 [facility] BENZODIAZEPINES NEGATIVE <100 [facility] [employer] [facility] BUPRENORPHINE POSITIVE(A) <5 QUES [employer] [facility] MEDMATCH BUPRENORPHINE PENDING [facility] BUPRENORPHINE 35(H) <2 ng/mL [facility] MEDMATCH BUPRENORPHINE PENDING [facility] NORBUPRENORPHINE 158(H) <2 ng/mL [facility] [employer] [facility] MEDMATCH NORBUPRENORPHINE PENDING [facility] NALOXONE 150(H) <2 ng/mL [facility] medMATCH Naloxone PENDING [employer] [facility] Buprenorphine Comments [facility] COCAINE METABOLITE POSITIVE(A) <150 [facility] MEDMATCH COCAINE METAB PENDING [facility] BENZOYLECGONINE 6,999(H) <100 ng/mL [facility] MEDMATCH BENZOYLECGONINE PENDING [facility] Cocaine Comments See Note [facility] Comment:See Cocaine Notes, L DT Notes 6 ACETYLMORPHINE NEGATIVE <10 [facility] [place] [facility] MARIJUANA METABOLITE NEGATIVE <20 [facility] MDMA NEGATIVE <500 [facility] OPIATES NEGATIVE <100 [facility] OXYCODONE NEGATIVE <100 [facility] CREATININE 149.0 > or = 20.0 mg/dL [facility] PH 7.0 4.5 - 9.0 [facility] OXIDANT NEGATIVE <200 [facility] Urine Urine specimen / Unknown 12/10/2024 3:58 PM EST 12/11/2024 6:27 AM EST Email Data SourceP LAB - NO BLOOD DRAW Final Resu lt Performing Organization Address [facility] Co de Phone Number [employer] [address] [address], [place] [address] [address] * DRUG MONITORING, FENTANYL, WITH CONFIRMATION, URINE (12/10/2024 3:58 PM EST) Only the most recent of3 resultswithin the time period is included. Fentanyl NEGATIVE <0.5 [employer] [facility] Urine Urine specimen / Unknown 12/10/2024 3:58 PM EST 12/11/2024 6:27 AM EST Email Data SourceP LAB - NO BLOOD DRAW Final Resu lt Performing Organization Address City/[facility] Co de Phone Number [employer] [address] [address], [place] [address] [address] * DRUG MONITORING, BARBITURATES, WITH CONFIRMATION, URINE (12/10/2024 3:58 PM EST) Only the most recent of3 resultswithin the time period is included. BARBITURATES NEGATIVE <300 [facility] [employer] [facility] Urine Urine specimen / Unknown 12/10/2024 3:58 PM EST 12/11/2024 6:27 AM EST Jesi Houseshahrzad [facility] LAB - NO BLOOD DRAW Final Resu lt [facility] [address] [address], [facility] [address] [address] * HIV 1/2 AG & AB W/RFLX (4TH GEN) (04/16/2024 1:26 PM EDT) HIV AG/AB, 4TH GEN NON-REAC TIVE NON-REAC TIVE [facility] Comment: HIV-1 antigen and HIV-1/HIV-2 antibodies were not detected. There is no laboratory evidence of HIV infection. PLEASE NOTE: This information has been disclosed to you from records whose confidentiality may be protected by state law. ??If your state requires such protection, then the state law prohibits you from making any further disclosure of the information without the specific written consent of the person to whom it pertains, or as otherwise permitted by law. A general authorization for the release of medical or other information is NOT sufficient for this purpose. ?? For additional information please refer to http://education.[employer]/faq/VJT031 (This link is being provided for informational/ educational purposes only.) The performance of this assay has not been clinically validated in patients less than 2 years old. Blood Blood / Unknown 04/16/2024 1 :26 PM EDT 04/16/2024 1:26 PM EDT Narrative [employer] - 04/18/2024 12:48 PM EDT FASTING:NO Jesibeckie Carmichael [facility] - BLOOD DRAW Final Result [facility] [employer] [facility] [address] [address], [place] [facility] [address] [place] [address] * COLOGUARD (03/20/2024 3:00 AM EDT) Stool Stool specimen / Unknown 03/20/2024 3:00 AM EDT Avelinogabino Stephenson TELEPHONE CLERK TELEGRAPH OFFICE-C LAB - NO BLOOD DRAW Final Result Performing Organization Address [facility] Co de Phone Number [employer] [address] [facility], [address] [facility] [id number] [place] [address], * RPR W/RFLX TITER+FTA+CONF (07/10/2023 11:20 AM EDT) RPR (DX) W/REFL TITER AND CONFIRMATORY TESTING NON-REACT TAWNYA NON-REACT TAWNYA [facility] Blood Blood / Unknown 07/10/2023 1 1:20 AM EDT 07/10/2023 11:20 AM EDT Narrative [facility] [employer] - 07/11/2023 12:55 PM EDT PATIENT UNABLE TO VOID; ADVISED TO RETURN FOR COLLECTION. Jesi Carmichael TELEPHONE CLERK TELEGRAPH OFFICE LAB - BLOOD DRAW Final Result Performing Organization Address 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
--- OUTSIDE RECORDS SUMMARY | 2024-12-21 05:46 | XMS_ITS | Encounter Summary ---
Author Organization [facility] Address [address] [place] [address] Care Team Providers Care Railroad Firer Name Role Phone Jesi Carmichael TITO Primary Care Provider [phone] Reason for Visit * Reason Comments Behavioral Health Screening Encounter Details Date Type Department Care Team (Late st Contact Info) Description 05/26/2019 / Visits [address] [phone] Charlene Vazquez [address] [place] [id number] Mild opioid use disorder (HCC-CMS) (Primary Dx) Social History Tobacco Use Types Packs/Day Years Used Date Smoking Tobacco: Never Assessed Sex and Gender Information Value Date Recorded Sex Assigned at Male 05/30/2019 7:47 AM PDT Legal Sex Male 7:05 AM PDT Gender Identity Male 05/30/2019 7:47 AM PDT Sexual Orientation Straight 05/30/2019 7: 47 AM PDT documented as of this encounter Plan of Treatment Upcoming Encounters Date Type Department Care Team (Late st Contact Info) Description 01/14/2025 1:00 PM EDT / Visits [address] [phone] [address]ina Rogers [address] [address] Scheduled Orders Name Type Priority Associated Diagnoses Orde r Schedule ALCOHOL &/OR SUBSTANCE OTHER THAN TOBACCO ABUSE STRUCTURED SCREENING EG AUDIT DAST & BRIEF INTERVENTION [facility] 15 TO 30 MINUTES Procedures Routine Mild opioid use disorder (HCC-CMS) Ordered: 05/26/2019 documented as of this encounter Procedures Procedure Name Priority Date/Time Associated Diagnosis Comments URINE DRUG SCREEN, CONFIRM BIOSCIENCES (POCT) Routine 05/26/2019 4:25 PM EDT Mild opioid use disorder (HCC-CMS) documented in this encounter Results * (ABNORMAL) URINE DRUG SCREEN, CONFIRM BIOSCIENCES (POCT) (05/26/2019 4:25 PM EDT) AMPHETAMINE NEGATIVE NEGATIVE [facility] URINE FENTANYL NEGATIVE NEGATIVE [facility] POCT BARBITURATES NEGATIVE NEGATIVE [facility] POCT MARIJUANA POSITIVE(A) NEGATIVE [facility] POCT BENZODIAZEPINES NEGATIVE NEGATIVE [facility] POCT MTD,METHADONE URINE NEGATIVE NEGATIVE [facility]CT BUPRENORPHINE POSITIVE(A) NEGATIVE [facility] OFF[facility] POCT METHAMPHETAMINE NEGATIVE NEGATIVE [facility] POCT COCAINE POSITIVE(A) NEGATIVE [facility] POCT MOP, MORPHINE NEGATIVE NEGATIVE [facility] POCT MDMA, ECSTASY NEGATIVE NEGATIVE [facility] POCT OXYCODONE NEGATIVE NEGATIVE [facility] POCT Urine specimen (specimen) Urine specimen / Unknown 05/26/2019 4:25 PM EDT us Keenan Ojeda MD LAB - NO BLOOD DRAW Final Res ult [facility] POCT documented in this encounter Visit Diagnoses Diagnosis Mild opioid use disorder ([facility]-CMS)- Primary Opioid abuse, unspecified documented in this encounter Additional Health Concerns Infection Onset Date Last Indicated Resolved Time COVID-19 (rule-out) Comment:Added automatically based on ordered lab. 07/05/2021 07/05/2021 07/07/2021 7:46 AM P DT COVID-19 Comment:Added automatically based on positive lab result. 07/07/2021 07/07/2021 08/06/2021 7:09 PM PDT Assessment Noted Time PHQ-9 Depression Total Score: 13 05/26/ 019 10:00 AM PDT documented as of this encounter Care Teams Railroad Firer Relationship Specialty Start Date End Date Jesi Carmichael FNP [facility] [place] [address] PCP - General Internal Medicine 09/29/22 documented as of this encounter
--- OUTSIDE RECORDS SUMMARY | 2024-12-21 05:46 | XMS_ITS | Clinical Summary ---
Author Organization [facility] ity Address [address] [place] [phone] Care Team Providers Care Auto Wash Buffer Name Role Phone Jesi Carmichael NP Primary Care Provider [phone] Social History Tobacco Use Types Packs/Day Years Used Date Smoking Tobacco: Never Assessed Sex and Gender Information Value Date Recorded Sex Assigned at Not on file Legal Sex Male 4:31 PM EST Gender Identity Not on file Sexual Orientation Not on file Plan of Treatment Health Maintenance Due Date Last Done Comments DTaP,Tdap,and Td Vaccines (1 - Tdap) 1989 Hepatitis B Vaccines (1 of 3 - 19+ 3-dose series) 1989 Pneumococcal Vaccine: 50+ Ye ars (1 of 1 - PCV) 01/22/2020 Zoster Vaccines (1 of 2) 01/22/2020 COVID-19 Vaccine ( - 2023-2 5 season) 2024 Influenza Vaccine (#1) 2024 HIB Vaccines Aged Out No longer eligi ble based on patient's age to complete this topic HPV Vaccines Aged Out No longer eligi ble based on patient's age to complete this topic Hepatitis A Vaccines Aged Out No long er eligible based on patient's age to complete this topic IPV Vaccines Aged Out No longer eligi ble based on patient's age to complete this topic MMR Vaccines Aged Out No longer eligi ble based on patient's age to complete this topic Meningococcal ACWY Vaccine Aged Out N o longer eligible based on patient's age to complete this topic Meningococcal B Vacine Aged Out No lo nger eligible based on patient's age to complete this topic Pneumococcal Vaccine: Pediat rics (0 to 5 Years) and At-Risk Patients (6 to 64 Years) Aged Out No longer eligible b ased on patient's age to complete this topic RSV Immunization Patients Un ramy 20 months Aged Out No longer eligible b ased on patient's age to complete this topic Varicella Vaccines Aged Out No longer eligible based on patient's age to complete this topic Care Teams Auto Wash Buffer Relationship Specialty Start Date End Date Jesi Carmichael NP [facility] [place] [address] PCP - General 04/14/24
--- OUTSIDE RECORDS SUMMARY | 2024-12-21 05:46 | XMS_ITS | Encounter Summary ---
Author Organization [facility] Address [address] [place] [address] Care Team Providers Care Audience Coordinator Name Role Phone Jesi Carmichael TITO Primary Care Provider [phone] Reason for Referral * Home Health Services (Routine) - Authorized Specialty Diagnoses / Procedures Referred By Lila rodriguez Referred To Contact Diagnoses Multiple joint pain Chrissy Ariza FNP [address] [place] [address] Phone: tel: fax: OTHER Referral ID Status Reason Start Date Expiration Date Visits Requested Visits Authorized [id number] Authorized Evaluate and Treat 12/18/2024 12/18/2025 1 1 Comments IADL Assessment: Cleaning: Performs light daily tasks such as dishwashing, bed making but needs assistance with heavier tasks Shopping: Shops independently for small purchases only. Meal Preparation: Needs cuing/supervision when preparing meals Telephone use: Uses telephone (dials, looks up numbers and receives calls) independently Laundry: Unable to do laundry. All laundry must be done by others Managing Money: Manages day-to-day purchases, but needs help with banking, major purchases, etc. Managing Medications: Takes responsibility if medication is prepared in advance in separate doses. ADL Assessment: Feeding: Feeds self independently Dressing: Needs cuing/supervision to get dressed. Ambulation: Ambulates independently with or without assistive device. Toileting: Toilets self independently. Bathing : Bathes self independently. Continence care: Episodes of incontinence but able to clean/change self. Grooming: Able to complete some grooming tasks but requires assistance with others. Communication : Communicates independently (or able to communicate with senior billing consultant if person does not speak Tajik). Based on Adarsh Green 's needs, the service most appropriate for the patent is: Recommended Services: Home Health Aid (GAMING DEALER) Reason for Visit * Reason Comments Referral Encounter Details Date Type Department Care Team ([facility] st Contact Info) Description 12/18/2024 3:20 PM EST [facility] Visit [facility] [address] [place] [address] Chrissy Ariza FNP [address] [place] [address] Samreen Pineda [address] [place] [address] Claudication (HCC-CMS) (Primary Dx); Multiple joint pain; Essential hypertension Social History Tobacco Use Types Packs/Day Years [...] AM PDT documented as of this encounter Last Filed Vital Signs Vital Sign Reading [...] Mass Index 38.53 12/18/2024 2:36 PM EST documented in this encounter Progress Notes * Chrissy Dyergarciaskye, CLINICAL PROGRAM MANAGER - 12/18/2024 2:43 PM EST CC: Referral Interpreting services by Samreen Pineda (Cuban) interpreted for today's visit. were utilized during this visit. Interpreting service provided in person. HPI: Adarsh Green is a 54 year old male patient who presents for evaluation of leg pain and referral. REVIEW OF SYSTEMS: Remainder ROS: See HPI, systems reviewed and are otherwise negative or noncontributory. He reports itching and dark coloration to the skin of left LE onset two weeks ago. Denies injury/trauma. Reports intermittent swelling, pain with ambulation and relieves with rest. 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 States original order did not go through. Per note COMBINING MACHINE OPERATOR. According [facility] and his partner he received a letter from [employer] mentioning that he needs to apply to another agency of services. translation and guidance on what you have to do to be evaluated and receive the services and according to determine the hours that would be assigned. Based on Adarsh Green 's needs, the service most appropriate for the patent is: Has been using his son inhaler-offering relief. He would like a prescription. No Known Allergies Patient Active Problem List Diagnosis ??? Hx of hepatitis C ??? Cocaine abuse (HCC-CMS) ??? Depressive disorder ??? Essential hypertension ??? Bone development abnormal ??? Osteoarthritis ??? Opioid use disorder, severe, dependence (HCC-CMS) ??? Knee pain, right ??? Nicotine addiction ??? Hepatitis B immune ??? Hepatitis A immune ??? Positive serological reaction for syphilis ??? Opioid use disorder, moderate, in sustained remission (HCC-CMS) ??? Moderate episode of recurrent major depressive disorder (HCC-CMS) ??? Chronic GERD ??? Acquired clawhand ??? Financial difficulties Current Outpatient Medications Medication Sig Dispense Refill ??? buprenorphine-naloxone (SUBOXONE FILM) 8-[address] 1 Strip under the tongue 3 (three) times daily for 28 days 84 Each 0 ??? ferrous sulfate 325 mg (65 mg iron) EC tablet Take 1 Tablet by mouth 2 (two) times daily 180 Tablet 1 ??? hydrOXYzine HCL (ATARAX) 25 mg tablet Take 1 Tablet by mouth 3 (three) times daily as needed for anxiety 30 Tablet 2 ??? celecoxib (CELEBREX) 400 mg capsule Take 1 Capsule by mouth 2 (two) times daily 180 Capsule 1 ??? famotidine (PEPCID) 40 mg tablet [place] 1 tableta por via oral cada maqana antes desayuno Indicaciones: acidez 90 Tablet 1 ??? gabapentin (NEURONTIN) 800 mg tablet Take 1 Tablet by mouth 3 (three) times daily 90 Tablet 4 ??? diclofenac sodium (SOLARAZE) 3 % gel Apply topically 2 (two) times daily For hand and knee pain50 g 2 ??? docusate sodium (COLACE) 100 mg capsule Take 1 Capsule by mouth daily. 90 Capsule 1 ??? losartan (COZAAR) 25 mg tablet Take 1 Tablet by mouth once daily For BP 90 Tablet 4 ??? varenicline (CHANTIX) 0.5 mg tablet Take one tab daily days 1-3, then 1 tab BID days 4-7 11 Tablet 0 ??? varenicline (CHANTIX) 1 mg tablet Take 1 Tablet by mouth 2 (two) times daily 60 Tablet 1 ??? ondansetron ODT (ZOFRAN-ODT) 4 mg disintegrating tablet Take 1 Tablet by mouth every 8 (eight) hours as needed for nausea 30 Tablet 1 ??? naloxone (NARCAN) 4 mg/actuation nasal spray Place 1 [place] into the nostril(s) as needed for opioid reversal Take as directed 1 Each 1 ??? sofosbuvir-velpatasvir (EPCLUSA) 400-100 mg tab Take 1 Tab by mouth once daily 84 Tab 0 No current facility-administered medications for this visit. Depression Screenin12/07/2023 7:26 PM How many times in the past year have you had 4 or more drinks in a day? NONE How many times in the past year have you used a recreational drug or used a prescription medicationfor nonmedical reasons? (!) 1 OR MORE How often do you have a drink containing alcohol? Never (Skip to Q 9-10) How many drinks containing alcohol do you have on a typical day when you are drinking? 1 or 2 How often do you have 6 or more drinks on one occasion? Never How often during the last year have you found that you were not able to stop drinking once you had started? Never How often during the last year have you failed to do what was normally expected from you because ofdrinking? Never How often during the last year have you needed a first drink in the morning to get yourself going after a heavy drinking session? Never How often during the last year have you had a feeling of guilt or remorse after drinking? Never How often during the last year have you been unable to remember what happened the night before because you had been drinking? Never Have you or someone else been injured as a result of your drinking? No Has a relative or friend or a doctor or another health worker been concerned about your drinking orsuggested you cut down? No AUDIT Total Score (Auto Calculated) 0 Risk Zone (Men age <65): Zone I: Low Risk Objective: Vitals: Blood pressure 134/72, pulse 93, temperature 99.3 ??F (37.4 ??C), temperature source Oral, resp. rate 16, height 5' 7 (1.702 m), weight 246 lb (111.6 kg), SpO2 95%. Physical Exam Vitals reviewed. Constitutional: General: He is not in acute distress. Appearance: Normal appearance. He is not ill-appearing. HENT: Head: Normocephalic. Cardiovascular: Rate and Rhythm: Normal rate and regular rhythm. Pulses: Normal pulses. Heart sounds: No murmur heard. Pulmonary: Effort: Pulmonary effort is normal. No respiratory distress. Breath sounds: Normal breath sounds. No stridor. No wheezing, rhonchi or rales. Chest: Chest wall: No tenderness. Musculoskeletal: Right lower leg: No swelling, deformity, lacerations, tenderness or bony tenderness. No edema. Left lower leg: No swelling, deformity, lacerations, tenderness or bony tenderness. No edema. Right foot: Normal capillary refill. Normal pulse. Left foot: Normal capillary refill. Normal pulse. Skin: Comments: Hyperpigmentation noted to left lateral lower extremity Neurological: General: No focal deficit present. Mental Status: He is alert and oriented to person, place, and time. Mental status is at baseline. Gait: Gait normal. Psychiatric: Mood and Affect: Mood normal. Behavior: Behavior normal. Judgment: Judgment normal. Weight management:BMI follow up plan: The patient was counseled regarding nutrition and physical activity. Tobacco Intervention:provided smoking cessation counseling Depression screen: PHQ-9 Total Score (Auto Calculated) 8 at 12/07/2023 4:36 PM 12/07/2023 7:26 PM How many times in the past year have you had 4 or more drinks in a day? NONE How many times in the past year have you used a recreational drug or used a prescription medicationfor nonmedical reasons? (!) 1 OR MORE How often do you have a drink containing alcohol? Never (Skip to Q 9-10) How many drinks containing alcohol do you have on a typical day when you are drinking? 1 or 2 How often do you have 6 or more drinks on one occasion? Never How often during the last year have you found that you were not able to stop drinking once you had started? Never How often during the last year have you failed to do what was normally expected from you because ofdrinking? Never How often during the last year have you needed a first drink in the morning to get yourself going after a heavy drinking session? Never How often during the last year have you had a feeling of guilt or remorse after drinking? Never How often during the last year have you been unable to remember what happened the night before because you had been drinking? Never Have you or someone else been injured as a result of your drinking? No Has a relative or friend or a doctor or another health worker been concerned about your drinking orsuggested you cut down? No AUDIT Total Score (Auto Calculated) 0 Risk Zone (Men age <65): Zone I: Low Risk The ASCVD Risk score (Margaret ARTEAGA, et al., 2019) failed to calculate for the following reasons: The valid total cholesterol range is 130 to 320 mg/dL Assessment/Plan: I73.9 Claudication ([facility]-CMS) (primary encounter diagnosis) Plan : ??? ASHVIN STUDY (ANKLE BRACHIAL INDEX) BILATERAL ??? US LOWER EXTREMITY ARTERIES DUPLEX COMPLETE BILATERAL -risk factors include smoking and obesity. Will obtain above diagnostics. Strongly encouraged smoking cessation. Encouraged daily walking. Call back precautions reviewed. M25.50 Multiple joint pain Plan : ??? REFERRAL TO HOME HEALTH CARE -see i/ADLs screening. New order placed. I10 Essential hypertension Plan : ??? LIPIDS W RFLX TO DIRECT LDL ? ? BLOOD COUNT COMPLETE AUTO&AUTO DIFRNTL WBC ??? IRON, TIBC, FERRITIN PANEL ??? HEMOGLOBIN GLYCOSYLATED A1C ??? COMPREHENSIVE METABOLIC PANEL -continue antihypertensive. Monitoring labs today. documented in this encounter Miscellaneous Notes * Patient Instructions - TITO Timmons - 12/18/2024 3:10 PM EST If you are not able to keep your appointment please call 24-48 hours before your appointment to cancel or reschedule. documented in this encounter Plan of Treatment Upcoming Encounters Date Type Department Care Team (Late st Contact Info) Description 01/14/2025 1:00 PM EDT / Visits [address] [phone] [address] Scheduled Orders Name Type Priority Associated Diagnoses Orde r Schedule ASHVIN STUDY (ANKLE BRACHIAL INDEX) BILATERAL Imaging Routine Claudication ([facility]) Ordered: 12/18/2024 US LOWER EXTREMITY ARTERIES DUPLEX COMPLETE BILATERAL Imaging Routine Claudication ([facility]) Ordered: 12/18/2024 Scheduled Referrals Name Type Priority Associated Diagnoses Orde r Schedule REFERRAL TO HOME HEALTH CARE Referral Routine Multiple joint pain Ordered: 12/18/2024 documented as of this encounter Procedures Procedure Name Priority Date/Time Associated Diagnosis Comments IRON, TIBC, FERRITIN PANEL Routine 12/18/2024 3:15 PM EST Essential hypertension LIPIDS W RFLX TO DIRECT LDL Routine 12/18/2024 3:15 PM EST Essential hypertension BLOOD COUNT COMPLETE AUTO&AUTO DIFRNTL WBC Routine 12/18/2024 3:15 PM EST Essential hypertension HEMOGLOBIN GLYCOSYLATED A1C Routine 12/18/2024 3:15 PM EST Essential hypertension COMPREHENSIVE METABOLIC PANEL Routine 12/18/2024 3:15 PM EST Essential hypertension documented in this encounter Results * COMPREHENSIVE METABOLIC PANEL (12/18/2024 3:15 PM EST) GLUCOSE 108 65 - 139 mg/dL [facility] Comment: ?Non-fasting reference interval UREA NITROGEN (BUN) 12 7 - 25 mg/dL [facility] CREATININE (blood) 0.93 0.70 - 1.30 mg/dL [facility] EGFR 98 > OR = 60 mL/min/1. 73m2 [facility] BUN/CREATININE RATIO SEE NOTE: [facility] Comment: ?? Not Reported: BUN and Creatinine are within ?? reference range. ? SODIUM 138 135 - 146 mmol/L [facility] POTASSIUM 4.3 3.5 - 5.3 mmol/L [facility] CHLORIDE 103 98 - 110 mmol/L [facility] CARBON DIOXIDE 27 20 - 32 mmol/L [facility] CALCIUM 9.3 8.6 - 10.3 mg/dL [facility] PROTEIN, TOTAL 7.9 6.1 - 8.1 g/dL [facility] ALBUMIN 4.5 3.6 - 5.1 g/dL [facility] GLOBULIN 3.4 1.9 - 3.7 g/dL (calc) [facility] ALBUMIN/GLOBULI N RATIO 1.3 1.0 - 2.5 (calc) [facility] BILIRUBIN, TOTAL 0.4 0.2 - 1.2 mg/dL [facility] ALKALINE PHOSPHATASE 88 35 - 144 U/L [facility] AST 20 10 - 35 U/L [facility] ALT 10 9 - 46 U/L [facility] Blood Blood / Unknown 12/18/2024 3 :15 PM EST 12/18/2024 3:15 PM EST Narrative [email or web address] [facility] - 12/19/2024 9:51 AM EST FASTING:NO Chrissy Ariza [facility] - BLOOD DRAW Final Result Performing Organization Address [facility] Co de Phone Number [facility] [address] [address], [employer] [address] [address] * (ABNORMAL) HEMOGLOBIN GLYCOSYLATED A1C (12/18/2024 3:15 PM EST) HEMOGLOBIN A1C 5.9(H) <5.7 % of total Hgb [facility] Comment: For someone without known diabetes, a [...] PM EST 12/18/2024 3:15 PM EST Narrative [facility] - 12/19/2024 9:51 AM EST FASTING:NO Chrissy Ariza [facility] - BLOOD DRAW Edited Resul t - Final Performing Organization Address [facility]/ZIP Co de Phone Number [facility] [address] [address], [employer] [address] [address] * (ABNORMAL) IRON, TIBC, FERRITIN PANEL (12/18/2024 3:15 PM EST) FERRITIN 19(L) 38 - 380 ng/mL [facility] IRON, TOTAL 23(L) 50 - 180 mcg/dL [facility] [employer] IRON BINDING CAPACITY 429(H) 250 - 425 mcg/dL (calc) [facility] % SATURATION 5(L) 20 - 48 % (calc) [facility] Blood Blood / Unknown 12/18/2024 3 :15 PM EST 12/18/2024 3:15 PM EST Narrative [email or web address] [facility] - 12/19/2024 9:51 AM EST FASTING:NO Chrissy [facility] - BLOOD DRAW Final Result [facility] [address] [address], [facility] [address] [place] [address] * (ABNORMAL) BLOOD COUNT COMPLETE AUTO&AUTO DIFRNTL WBC (12/18/2024 3:15 PM EST) WHITE BLOOD CELL COUNT 8.7 3.8 - 10.8 Thousand/ uL [facility] RED BLOOD CELL COUNT 4.24 4.20 - 5.80 Million/u L [facility] HEMOGLOBIN 9.7(L) 13.2 - 17.1 g/dL [facility] HEMATOCRIT 32.9(L) 38.5 - 50.0 % [facility] MCV 77.6(L) 80.0 - 100.0 fL [facility] MCH 22.9(L) 27.0 - 33.0 pg [facility] MCHC 29.5(L) 32.0 - 36.0 g/dL [facility] Comment: For adults, a slight decrease in the calculated MCHC value (in the range of 30 to 32 g/dL) is most likely not clinically significant; however, it should be interpreted with caution in correlation with other red cell parameters and the patient's clinical condition. RDW 16.3(H) 11.0 - 15.0 % [facility] [facility] PLATELET COUNT 289 140 - 400 Thousand/ uL [facility] MPV 12.2 7.5 - 12.5 fL [facility] ABSOLUTE NEUTROPHILS 6,995 1,500 - 7,800 cells/uL [facility] ABSOLUTE LYMPHOCYTES 1,131 850 - 3,900 cells/uL [facility] ABSOLUTE MONOCYTES 479 200 - 950 cells/uL [facility] [facility] [employer] ABSOLUTE EOSINOPHILS 78 15 - 500 cells/uL [facility] ABSOLUTE BASOPHILS 17 0 - 200 cells/uL [facility] NEUTROPHILS PCT 80.4 % [employer] [facility] LYMPHOCYTES 13.0 % [facility] [employer] [facility] MONOCYTES 5.5 % [facility] [employer] [facility] EOSINOPHILS 0.9 % [facility] AG[employer] Communications[employer] [facility] BASOPHILS 0.2 % [facility] [employer] [facility] Blood Blood / Unknown 12/18/2024 3 :15 PM EST 12/18/2024 3:15 PM EST Narrative [employer] - 12/19/2024 9:51 AM EST FASTING:NO Chrissy [facility] - BLOOD DRAW Edited Resul t - Final [employer] [address] [place] [id number], [facility] [address] [address] * (ABNORMAL) LIPIDS W RFLX TO DIRECT LDL (12/18/2024 3:15 PM EST) CHOLESTEROL, TOTAL 98 <200 mg/dL [facility] HDL CHOLESTEROL 30(L) > OR = 40 mg/dL [facility] TRIGLYCERIDES 110 <150 mg/dL [facility] LDL-CHOLESTEROL 48 99 mg/dL (calc) [facility] Comment: Reference range: <100 Desirable range <100 mg/dL for primary prevention; ?? <70 mg/dL for patients with CHD or diabetic patients with > or = 2 CHD risk factors. LDL-C is now calculated using the Mino-Yaneth calculation, which is a validated novel method providing better accuracy than the Friedewald equation in the estimation of LDL-C. Mino SS et al. FREDI. 2013;310(19): 4096-4999 (http://education.Joberator/faq/UQJ984) CHOL/HDLC RATIO 3.3 <5.0 (calc) [facility] [facility] [employer] [facility] NON-HDL CHOLESTEROL 68 <130 mg/dL (calc) [facility] Comment: For patients with diabetes plus 1 major ASCVD risk factor, treating to a non-HDL-C goal of <100 mg/dL (LDL-C of <70 mg/dL) is considered a therapeutic option. Blood Blood / Unknown 12/18/2024 3 :15 PM EST 12/18/2024 3:15 PM EST Narrative [facility] - 12/19/2024 9:51 AM EST FASTING:NO Chrissy [facility] - BLOOD DRAW Final Result [facility] [employer] [address] [address], [facility] [address] [address] documented in this encounter Visit Diagnoses Diagnosis Claudication ([facility])- Primary Peripheral vascular disease, unspecified Multiple joint pain Pain in joint, multiple sites Essential hypertension documented in this encounter Additional Health Concerns Assessment Noted Time PHQ-9 Depression Total Score: 8 12/07/19 24 4:36 PM PST documented as of this encounter Care Teams Audience Coordinator Relationship Specialty Start Date End Date Jesi Carmichael FNP [address] [place] [address] PCP - General Internal Medicine 09/29/22 documented as of this encounter
--- NOTE | 2024-12-21 06:17 | P.HPHOSP_ITS ---
History of Present Illness Date of Service: 12/21/24 Attending physician on admission: Jere [facility] Chief Complaint: Worsening cough and shortness of breath Patient is a 54-year-old male with a past medical history significant for tobacco use, HTN, substance use (on Suboxone, occasional cocaine use), and obesity, who presented to the ED due to worsening dry cough and shortness of breath for the past 1-2 weeks. He describes some chills at home but denies any fever. He reports an episode of left-sided chest pain with his cough. He saw his PCP recently who prescribed albuterol which he has not found to be helpful need denies any history of COPD or asthma. He has also had an occasional headache and diarrhea but denies any nausea or vomiting. He reports that he was near his dad recently who was also sick and feels that he got sick from him. He also reports iron-deficiency anemia for which she takes iron twice a day. Review of Systems 2 Constitutional: Constitutional: Denies body ache(s), Reports chills, Reports fatigue, Denies fever(s) and Reports headache(s) Eyes: Eyes: Denies change in vision and Denies photophobia ENT: Reports headache(s), Denies nasal congestion, Denies nasal discharge and Denies sore throat Cardiovascular: Cardiovascular: Reports chest pain (with cough), Denies chest pain at rest, Denies rapid heart rate, Denies lightheadedness, Reports dyspnea and Reports dyspnea on exertion Respiratory: Respiratory: Reports chest congestion, Reports cough, Reports dyspnea, Reports dyspnea on exertion and Denies wheezing Gastrointestinal: Gastrointestinal: Denies melena, Denies hematochezia, Reports diarrhea, Denies nausea and Denies vomiting Genitourinary: Genitourinary: Denies difficulty urinating, Denies dysuria and Denies urinary urgency Musculoskeletal: Musculoskeletal: Denies myalgias Integumentary/Breasts: Skin/Breast: Denies rash Neurologic: Denies confusion and Reports headache(s) Psychiatric: Psychiatric: Denies confusion Endocrine: Endocrine: Reports fatigue Hematologic/Lymphatic: Hematologic/Lymphatic: Denies easy bleeding and Denies easy bruising Allergic/Immunologic: Allergic/Immunologic: Denies wheezing [facility] Medical History (Updated 12/21/24 @ 06:27 by Arminda Armstrong PA-C) Tobacco abuse Opiate abuse, continuous Obesity HTN (hypertension) Functional capacity: independent ambulation Social History (Updated 12/21/24 @ 01:39 by Amarilis Solorzano DO) Patient Tobacco Use Status: Current everyday Tobacco user Advance Directives: No Advance Directives Information Provided: Yes Narrative: No alcohol. On Suboxone. Uses cocaine. Meds Allergies Allergy/AdvReac Type Severity Reaction Status Date / Time No Known Allergies Allergy Verified 12/21/24 01:35 Active Medications: Current Medications Acetaminophen (Acetaminophen 325 Mg Tablet) 975 mg PO Q6H PRN PRN Reason: Pain, Mild 1-3,fever,headache Calcium Carbonate (Calcium Carbonate 750 Mg Tab.Chew) 750 mg PO Q4H PRN PRN Reason: Heartburn Enoxaparin Sodium (Enoxaparin Sodium 40 Mg/0.4 Ml Syringe) 40 mg SUBCUT Q24H JANETT Sodium Chloride (Ns) 2,000 mls @ 999 mls/hr IVCONT .Q2H1M ONE Stop: 12/21/24 07:32 Azithromycin 500 mg/ Sodium (Chloride) 250 mls @ 125 mls/hr IV ONCE ONE Stop: 12/21/24 07:31 Magnesium Hydroxide (Milk Of Magnesia 30 Ml Oral.Susp) 30 ml PO DAILY PRN PRN Reason: Constipation Melatonin (Melatonin 3 Mg Tablet) 6 mg PO BEDTIME PRN PRN Reason: Insomnia Ondansetron HCl (Ondansetron Hcl 4 Mg/2 Ml Vial) 4 mg IVPUSH Q8H PRN PRN Reason: Nausea and Vomiting Sodium Chloride (0.9 % Sodium Chloride Flush 3 Ml Syringe) 3 ml IVFLUSH QSHIFT [facility] Physical Exam 2 Vital Signs and Narrative: Vital Signs: Last Vital Signs Temp 98.1 F 12/21/24 06:04 Pulse 91 12/21/24 06:04 Resp 18 12/21/24 06:04 BP 143/65 H 12/21/24 06:04 Pulse Ox 96 12/21/24 06:04 O2 Del Method Nasal Cannula 12/21/24 06:04 O2 Flow Rate 3 12/21/24 06:04 BMI result Body Mass Index 41.6 General: AOx3, no acute distress, 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 No wheezing, or crackles CVS: S1, S2, RRR GI: +BS, NT, no distention Skin: Warm, dry Neuro: Cranial nerves II-XII grossly intact bilaterally. Motor grossly intact bilaterally Extremities: No lower extremity edema Psych: Appropriate affect Const: General: No confusion Orientation/consciousness: No confusion Eyes: Direct Ophthalmoscopy: No photophobia Neuro: General: No confusion Results Labs 12/21/24 02:10 12/21/24 02:10 Labs: Laboratory Results - last 24 hr 12/21/24 12/21/24 02:10 02:15 MCV 72.2 L MCH 22.4 L MCHC 31.1 RDW 17.4 H Plt Count 288 MPV 10.2 Immature Gran % (Auto) 0.2 Neut % (Auto) 88.7 H Lymph % (Auto) 6.6 L [place] % (Auto) 4.4 Eos % (Auto) 0.0 Baso % (Auto) 0.1 Lymph # (Auto) 0.6 L [place] # (Auto) 0.4 Eos # (Auto) 0.0 Baso # (Auto) 0.0 Abs Immat Gran (auto) 0.02 Absolute Neuts (auto) 8.4 H Absolute Nucleated RBC 0.000 Nucleated RBC % (auto) 0.0 Anion Gap 14 Estim Creat Clear Calc 112.9 Estimated GFR > 60 Random Glucose 133 H Lactic Acid 0.9 Calcium 9.1 Magnesium 2.0 Total Bilirubin 0.6 Direct Bilirubin 0.3 AST 49 H ALT 10 Alkaline Phosphatase 94 C-Reactive Protein 29.09 H B-Natriuretic Peptide 82 Total Protein 8.9 H Albumin 4.0 Lipase 13 Procalcitonin 0.56 Influenza Type A (PCR) NEGATIVE Influenza Type B (PCR) NEGATIVE RSV RNA Qual (PCR) NEGATIVE SARS-CoV-2 RNA (RT-PCR) NEGATIVE Assessment and Plan (1) Acute hypoxic respiratory failure: Status: Acute (2) Pneumonia: Status: Acute (3) Iron deficiency anemia: Status: Acute (4) Obesity: Status: Acute Plan Patient is a 54-year-old male with a past medical history significant for tobacco use, HTN, substance use (on Suboxone, occasional cocaine use), and obesity, who presented to the ED due to worsening dry cough and shortness of breath for the past 1-2 weeks. Acute hypoxic respiratory failure secondary to pneumonia - WBC 9.4, tachycardia (likely secondary to albuterol), lactic acid normal, blood cultures x2 pending, no sepsis - chest x-ray with bilateral pneumonia - COVID/flu/RSV negative - procalcitonin 0.56 - oxygen saturation drops to 84% with ambulation, new oxygen requirement - given 2 L IV fluids in ED, not hypotensive - started on azithromycin and ceftriaxone, continue - monitor CBC and BMP - titrate off oxygen as appropriate Iron-deficiency anemia - hemoglobin 8.8 hematocrit 28.3 - no need for blood transfusion at this time, no active bleeding sources - continue outpatient follow-up - continue iron b.i.d. - monitor H&H with CBC HTN - continue losartan Substance use disorder - continue Suboxone Tobacco use - smoking cessation encouraged Obesity - BMI 41.6 - weight loss encouraged Full code VTE prophylaxis: Lovenox Patient with acute hypoxic respiratory failure secondary to bilateral pneumonia, requiring admission for at least 2 midnights stay for IV antibiotics and titration off of oxygen. Quality Stroke Does the patient have a stroke diagnosis?: No VTE Prior VTE?: No VTE Risk Level:: Medical - moderate - high VTE Device Contraindication: Treatment Not Indicated VTE Drug Contraindication: N/A - Med Ordered
--- NOTE | 2024-12-21 06:40 | PC.NURSE ---
Multiple failed attempts at obtaining IV access. Late administration of ab.
--- NOTE | 2024-12-21 07:53 | PC.NURSE ---
IV unable to be placed on supersonic engineer, multiple unsuccessful attempts made to place ultrasound line this A.M message sent to admitted provider Dr. Cheng
--- NOTE | 2024-12-21 09:08 | PHA.MEDREC ---
Pharmacy Consult ? Medication Reconciliation Pharmacy has completed the medication reconciliation. Utilized recep services. Spoke to pt to confirm meds. Per pt, no longer takes diclofenac.
[2024-12-21] MEDS: 0.9 % Sodium Chloride 2,000 ML 999 ML IVCONT (09:39)
[2024-12-21] MEDS: cefTRIAXone sodium 1 GM VIAL IVPUSH (09:39)
[2024-12-21] MEDS: Azithromycin 500 MG in 0.9 % Sodium Chloride 250 ML 125 MG IV (09:50)
--- NOTE | 2024-12-21 09:54 | PC.NURSE ---
ultrasound guided iv placed- abt given per mar
[2024-12-21] MEDS: Enoxaparin Sodium 40 MG/0.4 ML SYRINGE SUBCUT (09:59)
[2024-12-21] MEDS: Nicotine 21 MG PATCH.TD24 TRANSDERMA (11:24)
--- NOTE | 2024-12-21 11:43 | PM.EVENT ---
Event Note Date of Service: 12/21/24 Event Note: 54-year-old male with a past medical history significant for tobacco use, HTN, substance use (on Suboxone, occasional cocaine use), and obesity, who presented to the ED due to worsening dry cough and shortness of breath for the past 1-2 weeks. On examination resting comfortably intermittent cough Lungs clear to auscultation few bibasilar rhonchi Right forearm healed wound Extremities no edema Acute hypoxic respiratory failure secondary to pneumonia - WBC 9.4, tachycardia (likely secondary to albuterol), lactic acid normal, blood cultures x2 pending, no sepsis - chest x-ray with bilateral pneumonia - COVID/flu/RSV negative - procalcitonin 0.56 - oxygen saturation drops to 84% with ambulation, new oxygen requirement - given 2 L IV fluids in ED, not hypotensive - continue IV azithromycin and ceftriaxone, continue - monitor CBC and BMP - wean oxygen as tolerated Iron-deficiency anemia - hemoglobin 8.8 hematocrit 28.3 - no need for blood transfusion at this time, no active bleeding sources - continue outpatient follow-up - continue iron b.i.d. - monitor H&H with CBC HTN - stable BP, continue losartan Substance use disorder - continue Suboxone Tobacco use - smoking cessation encouraged smokes 3 pack per day placed on nicotine patch 21 mg Obesity - BMI 41.6, weight loss encouraged Chronic pain continue Celebrex 400 mg daily/on gabapentin 800 t.i.d./ Full code VTE prophylaxis: Lovenox Patient with acute hypoxic respiratory failure secondary to bilateral pneumonia, requiring admission for at least 2 midnights stay for IV antibiotics and titration off of oxygen. Time Spent With Patient Time: Total time managing care of this patient today ____ minutes.
[2024-12-21] MEDS: Buprenorphine/Naloxone 8/2 mg FILM 1 FILM SUBLINGUAL ×3 (11:47→21:54)
--- NOTE | 2024-12-21 11:47 | PC.NURSE ---
Per provider okay to give x1 dose of suboxone 8-2 now and resume home schedule for other two doses today
[2024-12-21] MEDS: Gabapentin 400 MG CAPSULE 800 MG PO ×2 (14:57→21:58)
[2024-12-21] MEDS: 0.9 % Sodium Chloride Flush 3 ML SYRINGE IVFLUSH (14:58)
[2024-12-21] MEDS: Ferrous Sulfate 324 MG TABLET.DR PO (21:54)
--- NOTE | 2024-12-21 22:55 | PC.NURSE ---
Critical access hospital called for suboxone verification- CATALINA Holman reports PT received suboxone sublingual 8-2mg TID.
[2024-12-22 00:31] VITALS: BP 187/99; PULSE 108; RESP 20; TEMP 37.7; O2SAT 92
--- NOTE | 2024-12-22 00:40 | PC.NURSE ---
Hospitalist notified of PT bp and other vitals. Awaiting new orders. plan of care ongoing
[2024-12-22] MEDS: 0.9 % Sodium Chloride Flush 3 ML SYRINGE IVFLUSH ×2 (01:04→07:35)
[2024-12-22 01:05] VITALS: BP 187/99; PULSE 108
[2024-12-22] MEDS: Labetalol HCL 100 MG/20 ML VIAL 10 MG IVPUSH (01:05)
[2024-12-22 01:15] VITALS: BP 141/61; PULSE 93; RESP 18; O2SAT 89; O2SAT 95
[2024-12-22 06:03] VITALS: BP 141/73; PULSE 94; RESP 20; TEMP 37; O2SAT 94
[2024-12-22 06:37] LABS: MANUAL DIFF FLAG NO
[2024-12-22 06:47] LABS: Basophils Percent Auto 0.2 % (0-2); Eosinophils Absolute Auto 0.1 X10*3/uL (0.0-0.4); Eosinophils Percent Auto 1.6 % (0-4); Hematocrit 28.8 % (42.0-52.0); Hemoglobin 8.8 g/dl (14.0-18.0); Imm Gran Abs Auto 0.02 X10*3/uL (0.00-0.03); Imm Gran Pct Auto 0.3 % (0.0-0.4); Lymphocytes Absolute Auto 0.8 X10*3/uL (1.2-4.9); Lymphocytes Percent Auto 14.2 % (20-40); Mean Corpuscular HGB Conc 30.6 g/dl (31.0-36.0); Mean Corpuscular Hemoglobin 22.1 pg (27.0-33.0); Mean Corpuscular Volume 72.4 fL (80.0-98.0); Mean Platelet Volume 10.6 fL (9.4-12.4); Monocytes Absolute Auto 0.4 X10*3/uL (0.1-1.2); Monocytes Percent Auto 7.1 % (2-11); Neutrophils Absolute Auto 4.4 x10*3/uL (2.0-8.3); Neutrophils Percent Auto 76.6 % (45-73); Platelet Count 339 X10*3/uL (160-400); Red Blood Count 3.98 X10*6/uL (4.60-5.80); Red Cell Distribution Width 17.3 % (11.0-16.0); White Blood Count 5.8 X10*3/uL (4.8-10.8)
[2024-12-22 07:01] LABS: Anion Gap 14 (12-20); Blood Urea Nitrogen 10 mg/dL (9-16); Calcium 9.3 mg/dL (8.4-10.2); Carbon Dioxide 22 mmol/L (22-29); Chloride 105 mmol/L (96-108); Creatinine Clr Calc Pharmacy 105.6; Estimated Glomerular Filt Rate > 60; Glucose Random 113 mg/dL (60-115); Sodium 137 mmol/L (135-145)
[2024-12-22 07:32] VITALS: BP 151/79; PULSE 95; RESP 20; TEMP 36.8; O2SAT 94
[2024-12-22] MEDS: Enoxaparin Sodium 40 MG/0.4 ML SYRINGE SUBCUT (07:32)
[2024-12-22] MEDS: Nicotine 21 MG PATCH.TD24 TRANSDERMA (07:32)
[2024-12-22] MEDS: Buprenorphine/Naloxone 8/2 mg FILM 1 FILM SUBLINGUAL (07:32)
[2024-12-22] MEDS: Famotidine 20 MG TABLET 40 MG PO (07:32)
[2024-12-22] MEDS: Gabapentin 400 MG CAPSULE 800 MG PO (07:33)
[2024-12-22] MEDS: Ferrous Sulfate 324 MG TABLET.DR PO (07:33)
[2024-12-22] MEDS: Losartan Potassium 25 MG TABLET PO (07:33)
[2024-12-22] MEDS: Azithromycin 500 MG in 0.9 % Sodium Chloride 250 ML 125 MG IV (07:33)
--- NOTE | 2024-12-22 07:48 | PC.NURSE ---
patient primarily sami speaking, states he feels better than when he arrived however still some shortness of breath. oxygen btwn 92-95% on room air, patient stating he does not wish to be wearing oxygen at this time. medicated per the MAR, antibiotics infusing.
[2024-12-22] MEDS: cefTRIAXone sodium 1 GM VIAL IVPUSH (09:49)
--- NOTE | 2024-12-22 10:25 | MHC.CM.PN ---
pt dcd home prior to being seen by cm pt dcd home self care
--- NOTE | 2024-12-22 10:29 | P.DS_ITS ---
DS: Providers Provider Date of Service: 12/22/24 Date of admission: 12/21/24 06:13 Date of discharge: 12/22/24 Primary care physician: Unknown Physician DS: Diagnosis Discharge Diagnosis (1) Acute hypoxic respiratory failure: Status: Acute (2) Pneumonia: Status: Acute (3) Iron deficiency anemia: Status: Acute (4) Obesity: Status: Acute DS: Summary Hospital Course Hospital Course: Date of Service: 12/21/24 Attending physician on admission: Jere [facility] Chief Complaint: Worsening cough and shortness of breath Patient is a 54-year-old male with a past medical history significant for tobacco use, HTN, substance use (on Suboxone, occasional cocaine use), and obesity, who presented to the ED due to worsening dry cough and shortness of breath for the past 1-2 weeks. He describes some chills at home but denies any fever. He reports an episode of left-sided chest pain with his cough. He saw his PCP recently who prescribed albuterol which he has not found to be helpful need denies any history of COPD or asthma. He has also had an occasional headache and diarrhea but denies any nausea or vomiting. He reports that he was near his dad recently who was also sick and feels that he got sick from him. He also reports iron-deficiency anemia for which she takes iron twice a day. Hospital course: Admitted for Acute hypoxic respiratory failure secondary to patchy bilateral pulmonary infiltrates , had no sepsis features with normal WBC count, normal lactic acid, COVID/flu/RSV negative, procalcitonin 0.56 admitted to medical floor on IV azithromycin and ceftriaxone, noted to have hypoxia on admission required oxygen, patient responded to above treatment currently doing significantly better denies shortness of breath, oxygenation stable on room air therefore being discharged home to finish a total 5 day course of antibiotic, patient has chronic iron deficiency anemia recommend to continue iron supplements. In regard to hypertension continue losartan Substance use disorder - continue Suboxone Tobacco use - smoking cessation encouraged smokes 3 pack per day placed on nicotine patch 21 mg. Obesity - BMI 41.6, weight loss encouraged Chronic pain continue Celebrex 400 mg daily/on gabapentin 800 t.i.d. Time Attestation Discharge Coordination Time (in mins): 38 Quality: Safe Use of Opioids Does Pt have an Active Cancer Diagnosis on the Problem List?: No Quality: Stroke Does the patient have a stroke diagnosis?: No Physical Exam Vital Signs: Vital Signs: Last Vital Signs Temp 98.3 F 12/22/24 07:32 Pulse 95 12/22/24 07:32 Resp 20 12/22/24 07:32 BP 151/79 H 12/22/24 07:32 Pulse Ox 94 12/22/24 07:32 O2 Del Method Room Air 12/22/24 07:32 O2 Flow Rate 3 12/22/24 01:15 BMI result Body Mass Index 41.6 Const: Other: General in no acute distress. Neck no JVD. CVS regular rate rhythm, Respiratory lungs clear to auscultation, coarse breath sound at bases, no respiratory distress, no wheeze, no rhonchi. Gastrointestinal abdomen soft, non tender, bowel sounds audible Extremities no edema. Neuro non focal Skin no rash DS: Data Data Completed and Pending Labs on day of discharge: Laboratory Results - last 24 hr 12/22/24 05:56 WBC 5.8 RBC 3.98 L Hgb 8.8 L Hct 28.8 L MCV 72.4 L MCH 22.1 L MCHC 30.6 L RDW 17.3 H Plt Count 339 MPV 10.6 Immature Gran % (Auto) 0.3 Neut % (Auto) 76.6 H Lymph % (Auto) 14.2 L [place] % (Auto) 7.1 Eos % (Auto) 1.6 Baso % (Auto) 0.2 Lymph # (Auto) 0.8 L [place] # (Auto) 0.4 Eos # (Auto) 0.1 Baso # (Auto) 0.0 Abs Immat Gran (auto) 0.02 Absolute Neuts (auto) 4.4 Absolute Nucleated RBC 0.000 Nucleated RBC % (auto) 0.0 Sodium 137 Potassium 4.0 Chloride 105 Carbon Dioxide 22 Anion Gap 14 BUN 10 Creatinine 0.93 Estim Creat Clear Calc 105.6 Estimated GFR > 60 Random Glucose 113 Calcium 9.3 Preliminary micro results at discharge 12/21/24 02:10 Blood Culture - Preliminary Blood - Venous No growth after 24 hours. 12/21/24 02:10 Blood Culture - Preliminary Blood - Venous No growth after 24 hours. Discharge Plan Discharge Anticipated Discharge Date/Time: 12/22/24 09:59 Patient Disposition: Home, Self-Care Discharge Diagnosis: Acute hypoxic respiratory failure Pneumonia Referrals: Physician,Unknown J [Primary Care Provider] - 1 Week Discharge Medications: New nicotine 21 mg/24 hr Patch 24 Hour 21 mg transdermal DAILY Qty: 28 0RF cefuroxime axetil 500 mg tablet 500 mg PO Q12H Qty: 8 0RF azithromycin 250 mg tablet 250 mg PO DAILY Qty: 4 0RF Continued famotidine 40 mg tablet 40 mg PO DAILY gabapentin 800 mg tablet 800 mg PO TID losartan 25 mg tablet 25 mg PO DAILY albuterol sulfate [Ventolin HFA] 90 mcg/actuation HFA aerosol inhaler 2 puff inhalation Q4H PRN (Reason: dyspnea) ferrous sulfate 325 mg (65 mg iron) tablet,delayed release (DR/EC) 325 mg PO BID buprenorphine-naloxone [Suboxone] 8-2 mg film 1 film sublingual TID hydroxyzine HCl 25 mg tablet 25 mg PO TID PRN (Reason: anxiety) Changed celecoxib 400 mg capsule 400 mg PO DAILY Qty: 30 0RF Discharge Orders: Discharge Order (Routine); Ordered 12/22/24 Ordered By: Taylor Cheng Diet: Advance to usual diet Activity on Discharge: As tolerated Stand Alone Forms: Patient Portal Discharge page Print Language: Vietnamese Care Plan Goals: Pneumonia take Ceftin 1 tablet twice daily x4 days Azithromycin 1 tablet daily for 4 days Nicotine patch once daily for 24 hours strongly recommend to abstain from smoking Strongly recommend to abstain from illicit drug use. Health Concerns: Continue all home medication Decrease dose of Celebrex 400 mg to once daily Plan of Treatment: Follow-up with primary care physician, call for appointment Assessment: As above
== END 2024-12-22 10:32 | disposition home or self-care (01) | DRG 139 ==
LOC: HO.ED 05:44 → HO.EDOVER 06:26
PROVIDERS: Emergency Medicine; Admitting Provider Physician Assistant; Emergency Provider Emergency Medicine; Visit Provider Hospitalist
DX: J18.9 Pneumonia, unspecified organism (principal); J96.01 Acute respiratory failure with hypoxia; D50.9 Iron deficiency anemia, unspecified; F11.20 Opioid dependence, uncomplicated; E66.9 Obesity, unspecified; G89.29 Other chronic pain; I10 Essential (primary) hypertension; Z68.41 Body mass index [BMI] 40.0-44.9, adult; Z71.3 Dietary counseling and surveillance; Z20.822 Contact with and (suspected) exposure to COVID-19; Z79.899 Other long term (current) drug therapy
CPT/HCPCS: 0241U; 36415; 71046; 80048; 80076; 83605; 83690; 83735; 83880; 84145; 84484; 85025; 86140; 87040; 93005; 94640; 99285; J0456; J0696; J1650; J1920

== ENCOUNTER → 2024-12-21 00:25 | Outpatient (BNV) | payer MEDICAID, SELFPAY | PROVIDERS: Admitting Provider Physician Assistant; Emergency Provider Emergency Medicine; Visit Provider Internal Medicine | DX: R07.9 Chest pain, unspecified (principal); R94.31 Abnormal electrocardiogram [ECG] [EKG] | CPT/HCPCS: 93010 ==

== ENCOUNTER → 2024-12-21 01:06 | Outpatient (BNV) | payer MEDICAID, SELFPAY | PROVIDERS: Visit Provider General Practice | DX: R07.9 Chest pain, unspecified (principal) | CPT/HCPCS: 71046 ==

== ENCOUNTER → 2024-12-21 06:13 | Outpatient (BNV) | payer MEDICAID, SELFPAY | PROVIDERS: Admitting Provider Physician Assistant; Emergency Provider Emergency Medicine; Visit Provider Hospitalist | DX: J96.01 Acute respiratory failure with hypoxia (principal); J18.9 Pneumonia, unspecified organism; D50.9 Iron deficiency anemia, unspecified; E66.9 Obesity, unspecified | CPT/HCPCS: 99239; 99499 ==